=== PATIENT | female | born 1970 | race Caucasian/White ===

== ENCOUNTER → 2016-04-11 | Outpatient (CLI) | payer OTHER ==
[2016-04-12 01:15] LABS: Hemoglobin A1C 5.3 % (4.2-6.1)
== END | disposition home or self-care (01) ==
LOC: MMGSC 11:59
PROVIDERS: ATTEND Family Medicine
DX: R73.9 Hyperglycemia, unspecified (principal)
CPT/HCPCS: 36415; 83036

== ENCOUNTER → 2016-10-07 | Outpatient (CLI) | payer OTHER ==
[2016-10-07 19:06] LABS: ALT 32 U/L (9-52); AST 24 U/L (14-36); Alkaline Phosphatase 89 U/L (38-126); Anion Gap 8 mmol/L; Basophils # (A) 0.1 k/uL (0-0.2); Basophils % (A) 1 %; Blood Urea Nitrogen 17 mg/dL (7-17); CH 26.5; CHCM 31.6; Calcium 9.7 mg/dL (8.4-10.2); Carbon Dioxide 31 mmol/L (22-30); Chloride 100 mmol/L (98-107); Eosinophils # (A) 0.1 k/uL (0-0.7); Eosinophils % (A) 2 %; Glucose 95 mg/dL (74-99); HCT 41.4 % (34.0-46.0); HDW 2.51; HGB 12.9 gm/dL (11.4-16.0); Luc # (Auto) 0.18; Luc % (Auto) 2; Lymphocytes # (A) 2.4 k/uL (1.0-4.8); Lymphocytes % (A) 33 %; MCH 26.1 pg (25.0-35.0); MCHC 31.1 g/dL (31.0-37.0); MCV 84.1 fL (80.0-100.0); Mean Platelet Volume 10.3; Monocytes # (A) 0.3 k/uL (0-1.0); Monocytes % (A) 4 %; Neutrophils # (A) 4.2 k/uL (1.3-7.7); Neutrophils % (A) 59 %; Non-African American GFR(MDRD) >60 (>60 ml/min/1.73 sqM); Potassium 4.6 mmol/L (3.5-5.1); RBC 4.92 m/uL (3.80-5.40); RDW 15.2 % (11.5-15.5); Sodium 139 mmol/L (137-145); Total Bilirubin 0.6 mg/dL (0.2-1.3); Total Protein 7.2 g/dL (6.3-8.2); WBC 7.2 k/uL (3.8-10.6); WBC (Perox) 7.19
== END | disposition home or self-care (01) ==
LOC: MMGSC 11:28
PROVIDERS: ATTEND Family Medicine
DX: N93.8 Other specified abnormal uterine and vaginal bleeding (principal)
CPT/HCPCS: 36415; 80053; 84439; 84443; 85025

== ENCOUNTER → 2017-06-23 | Outpatient (CLI) | payer OTHER ==
--- NOTE | 2017-06-23 11:13 | XR ---
EXAMINATION TYPE: XR chest 2V DATE OF EXAM: 06/23/2017 COMPARISON: NONE TECHNIQUE: PA and lateral views submitted. HISTORY: Cough FINDINGS: The lungs are clear and there is no pneumothorax, pleural effusion, or focal pneumonia. IMPRESSION: 1. No acute process.
== END | disposition home or self-care (01) ==
LOC: RADXRMAIN 10:12
PROVIDERS: ATTEND Family Medicine
DX: R05 Cough (principal)
CPT/HCPCS: 71046

== ENCOUNTER → 2017-10-14 | Outpatient (CLI) | payer OTHER ==
--- NOTE | 2017-10-15 12:26 | MM ---
Reason for exam: screening (asymptomatic). Last mammogram was performed 1 year and 10 months ago. History: Took hormonal contraceptives for 5 years beginning at age 18. Physical Findings: A clinical breast exam by your physician is recommended on an annual basis and results should be correlated with mammographic findings. MG 3D Screening Mammo W/Cad Bilateral CC and MLO view(s) were taken. Prior study comparison: December 04, 2015, bilateral MG screening mammo w CAD. June 30, 2013, bilateral MG screening mammo w CAD. The breast tissue is heterogeneously dense. This may lower the sensitivity of mammography. No suspicious calcifications are seen. There is no discrete abnormality. No significant changes when compared with prior studies. ASSESSMENT: Benign, BI-RAD 2 RECOMMENDATION: Routine screening mammogram of both breasts in 1 year.
== END ==
LOC: RADMAMWWP 07:43
PROVIDERS: ATTEND Family Medicine
DX: Z12.31 Encounter for screening mammogram for malignant neoplasm of breast (principal)
CPT/HCPCS: 77063; 77067

== ENCOUNTER → 2018-08-04 | Outpatient (CLI) | payer BC | END | disposition home or self-care (01) | LOC: LABPAT 12:18 | PROVIDERS: ATTEND Surgery Plastic and Reconstructive Surgery | DX: Z01.812 Encounter for preprocedural laboratory examination (principal) | CPT/HCPCS: 36415; 86850; 86900; 86901 ==

== ENCOUNTER → 2018-08-04 | Outpatient (CLI) | payer BC ==
[2018-08-04 12:52] VITALS: BP 155/84; PULSE 76; TEMP 98.2; BMI 34.9
--- NOTE | 2018-08-04 22:09 | P.HPBAR ---
Bariatric H&P - History & Physicial H&P Date: 08/04/18 History & Physicial: Visit/CC: nurse visit only Patient initial contact: Initial weight: Initial weight in pounds: Height: 5 ft 6.5 in Initial BMI: Last weight: Current weight: 99.79 kg Current weight in pounds: 220.00 Current BMI: 34.9 [place] body weight (based on NIH guidelines): 60.101 kg Excess body weight loss: The patient is a 47 year-old F who presents for Bariatric Assessment. DATE OF SERVICE: 08/04/2018 REASON FOR CONSULTATION: Morbid obesity HISTORY OF PRESENT ILLNESS: Mary Rojas is a 47-year-old female who comes with morbid obesity who presents as a transfer from another bariatric center after completing all pre-surgical requirements for bariatric procedure. She was scheduled to undergo surgery when the bariatric program had dissolved. Now she presents as a transfer of care to complete her procedure as she has been pre- approved. She comes in with multiple medical co-morbidities related to her obesity including hypertensive heart disease, osteoarthritis of the hips and knees. She has also developed anxiety disorder, depressive disorder and hypothyroidism. She has undergone attempts at weight loss including calorie restriction with minimal success with immediate weight re-gain. She has completed over 7 months of medical supervised weight loss. Her highest previous weight was over 234 pounds. She has lost over 10+ pounds in the same time frame. She has a family history of morbid obesity with hypertensive heart disease. She comes in looking into the sleeve gastrectomy. At height of 5 feet 6.5 inches, her ideal body weight is 154 pounds. She comes in 221 pounds. Her body mass index is 35.2. PAST MEDICAL HISTORY: 1. Morbid obesity due to excess calories 2. Body mass index of 37.3, initial 3. Osteoarthritis of the knees. 4. Osteoarthritis of the lower back. 5. Hypertensive heart disease. 6. Gastroesophageal reflux disease 7. Iron deficiency anemia 8. Hypothyroidism 9. Anxiety disorder 10. Depressive disorder 11. Bronchitis PAST SURGICAL HISTORY: 1. Tubal ligation 2. Upper endoscopy HOME MEDICATIONS: Home Medications Medication Instructions Recorded Confirmed Chlorothiazide [Diuril] 250 mg PO DAILY 08/04/18 08/04/18 DULoxetine HCL [Cymbalta] 60 mg PO DAILY 08/04/18 08/04/18 Levothyroxine Sodium 150 mcg PO DAILY 08/04/18 08/04/18 ALLERGIES: Allergies Allergy/AdvReac Type Severity Reaction Status Date / Time amoxicillin Allergy Rash/Hives Verified 08/04/18 12:53 sulfamethoxazole Allergy Rash/Hives Verified 08/04/18 12:56 [From Bactrim] trimethoprim [From Bactrim] Allergy Rash/Hives Verified 08/04/18 12:56 SOCIAL HISTORY: No past tobacco use. FAMILY HISTORY: No family history of ulcerative colitis disease or Crohn's disease. Family history of morbid obesity. No lupus in the family. No reports of stomach or esophageal cancer. Family history of hypertensive heart disease REVIEW OF ORGAN SYSTEMS: CONSTITUTIONAL: At height of 5 feet 6.5 inches, her ideal body weight is 154 pounds. She comes in 221 pounds. Her body mass index is 35.2. HEENT: Denies any active troubles with hearing. No troubles with swallowing. She wears glasses. ENDOCRINE: No diabetes. Has hypothyroidism. CARDIOVASCULAR: Past reports of palpitations or heart attacks or chest pain. RESPIRATORY: Has daytime somnolence. No asthma. GASTROINTESTINAL: Denies any bright red blood per rectum. No diarrhea. No constipation. MUSCULOSKELETAL: Has lower back pain and joint pain. Has osteoarthritis of the knees. NEURO: No headaches. No seizure disorders. PSYCH: Has depression. No suicidal ideation. Has anxiety. RHEUMATOLOGIC: No lupus. No rheumatoid arthritis. HEMATOLOGIC: Denies any abnormal bleeding or bruising. No personal history of DVTs. SKIN: No rash. No skin cancer. PHYSICAL EXAM: VITAL SIGNS: Height 5 foot 6.5 inches, weight 221 pounds. BMI 35.2 Vital Signs Temp 98.2 F 08/04/18 12:03 Pulse 76 08/04/18 12:03 Resp BP 155/84 08/04/18 12:03 Pulse Ox GENERAL: Well-developed in no acute distress. HEENT: No scleral icterus. Extraocular movements grossly intact. Hears conversational speech. No nasal drainage. NECK: Supple without lymphadenopathy. CHEST: Nonlabored respirations with equal bilateral excursions. CARDIOVASCULAR: Regular rate and regular rhythm. Distal 2+ pulses. ABDOMEN: Obese, soft, nontender, nondistended. MUSCULOSKELETAL: No clubbing, cyanosis. Gross strength 5/5 distal lower extremities. NEURO: No focal or lateralizing signs. Cranial nerves 2 through 12 grossly within normal limits. PSYCH: Appropriate affect. Alert and oriented to person, place and time. SKIN: Good skin turgor. Well perfused. ASSESSMENT: 1. Morbid obesity due to excess calories 2. Body mass index of 37.3, initial 3. Osteoarthritis of the knees. 4. Osteoarthritis of the lower back. 5. Hypertensive heart disease. 6. Gastroesophageal reflux disease 7. Iron deficiency anemia 8. Hypothyroidism 9. Anxiety disorder 10. Depressive disorder 11. Bronchitis PLAN: 1. Bariatric options including sleeve, band and a Armando-en-Y gastric bypass were reviewed in detail. The patient elected for a sleeve gastrectomy. Robotic assisted approach described. 2. The [place] [facility] Data was also reviewed with benefits and risks as described. 3. An 8 page second-generation bariatric consent form was reviewed in detail including potential of bleeding, infection, leaks, adequate weight loss, nutritional deficiencies which the patient demonstrated understanding of the risks. 4. A 2 week high-protein low caloric 800 kcal diet described to address hepatomegaly. 5. Preoperative labs including complete metabolic panel and CBC with type and screen recommended. 6. DVT prophylaxis per [place] [facility]ariat[facility] surgery collaborative. 7. Antibiotic prophylaxis. 8. Inpatient hospitalization anticipated for more than 2 nights. 9. All questions and concerns were addressed with the patient. 10. Overall, she presents as a transfer from another bariatric center after completing all requirements including medical risk assessment, psychiatric assessment, and nutritional assessment. 11. Recommend iron infusion for symptomatic iron deficiency anemia despite oral supplements. Thank you for this consultation. Past Medical History Past Medical History: Hypertension History of Any Multi-Drug Resistant Organisms: None Reported Past Surgical History: Tubal Ligation Past Anesthesia/Blood Transfusion Reactions: No Reported Reaction Past Psychological History: Anxiety Smoking Status: Never smoker Past Alcohol Use History: None Reported Past Drug Use History: None Reported Surgical - Exam Vital Signs Temp Pulse BP 98.2 F 76 155/84 08/04/18 12:03 08/04/18 12:03 08/04/18 12:03 Bariatric Checklist Checklist: Plan: Checklist: EGD: 1. Hiatal hernia: 2. H. Pylori: HgbA1c: Vitamin D: Smoking: Never smoker Primary care physician referral: dr coello Psychiatry clearance: Cardiology clearance: Sleep study: Diet journal: VTE risk score: VTE risk level: Rehab needs at discharge:
== END | disposition home or self-care (01) ==
LOC: BARWHC3 11:39
PROVIDERS: ATTEND Surgery Plastic and Reconstructive Surgery
DX: E66.01 Morbid (severe) obesity due to excess calories (principal); I11.9 Hypertensive heart disease without heart failure; M17.0 Bilateral primary osteoarthritis of knee; M16.0 Bilateral primary osteoarthritis of hip; F41.9 Anxiety disorder, unspecified; F32.9 Major depressive disorder, single episode, unspecified; E03.9 Hypothyroidism, unspecified; M47.9 Spondylosis, unspecified; K21.9 Gastro-esophageal reflux disease without esophagitis; D50.9 Iron deficiency anemia, unspecified; J40 Bronchitis, not specified as acute or chronic; Z79.890 Hormone replacement therapy; Z79.899 Other long term (current) drug therapy; Z83.438 Family history of other disorder of lipoprotein metabolism and other lipidemia; Z88.0 Allergy status to penicillin; Z68.37 Body mass index [BMI] 37.0-37.9, adult; Z88.2 Allergy status to sulfonamides
CPT/HCPCS: 99211

== ENCOUNTER 2018-08-12 10:25 | Inpatient (IN) | payer BC ==
--- NOTE | 2018-08-12 08:22 | P.GSHP ---
History of Present Illness H&P Date: 08/12/18 DATE OF SERVICE: 08/12/2018 CHIEF COMPLAINT: Morbid obesity HISTORY OF PRESENT ILLNESS: Mary Rojas is a 47-year-old female who comes with morbid obesity. She comes in with multiple medical co-morbidities related to her obesity including hypertensive heart disease, osteoarthritis of the hips and knees. She has also developed anxiety disorder, depressive disorder and hypothyroidism. She has undergone attempts at weight loss including calorie restriction with minimal success with immediate weight re-gain. She has completed over 7 months of medical supervised weight loss. Her highest previous weight was over 234 pounds. She has lost over 10+ pounds in the same time frame. She has a family history of morbid obesity with hypertensive heart disease. She comes in looking into the sleeve gastrectomy. At height of 5 feet 6 inches, her ideal body weight is 154 pounds. She comes in 224 pounds. Her body mass index is 36.3. PAST MEDICAL HISTORY: 1. Morbid obesity due to excess calories 2. Body mass index of 37.3, initial 3. Osteoarthritis of the knees. 4. Osteoarthritis of the lower back. 5. Hypertensive heart disease. 6. Gastroesophageal reflux disease 7. Iron deficiency anemia 8. Hypothyroidism 9. Anxiety disorder 10. Depressive disorder 11. Bronchitis PAST SURGICAL HISTORY: 1. Tubal ligation 2. Upper endoscopy HOME MEDICATIONS: Home Medications Medication Instructions Recorded Confirmed Chlorothiazide [Diuril] 250 mg PO DAILY 08/04/18 08/04/18 DULoxetine HCL [Cymbalta] 60 mg PO DAILY 08/04/18 08/04/18 Levothyroxine Sodium 150 mcg PO DAILY 08/04/18 08/04/18 ALLERGIES: Allergies Allergy/AdvReac Type Severity Reaction Status Date / Time amoxicillin Allergy Rash/Hives Verified 08/04/18 12:53 sulfamethoxazole Allergy Rash/Hives Verified 08/04/18 12:56 [From Bactrim] trimethoprim [From Bactrim] Allergy Rash/Hives Verified 08/04/18 12:56 SOCIAL HISTORY: No past tobacco use. FAMILY HISTORY: No family history of ulcerative colitis disease or Crohn's disease. Family history of morbid obesity. No lupus in the family. No reports of stomach or esophageal cancer. Family history of hypertensive heart disease REVIEW OF ORGAN SYSTEMS: CONSTITUTIONAL: At height of 5 feet 6.5 inches, her ideal body weight is 154 p ounds. HEENT: Denies any active troubles with hearing. No troubles with swallowing. She wears glasses. ENDOCRINE: No diabetes. Has hypothyroidism. CARDIOVASCULAR: Past reports of palpitations or heart attacks or chest pain. RESPIRATORY: Has daytime somnolence. No asthma. GASTROINTESTINAL: Denies any bright red blood per rectum. No diarrhea. No constipation. MUSCULOSKELETAL: Has lower back pain and joint pain. Has osteoarthritis of the knees. NEURO: No headaches. No seizure disorders. PSYCH: Has depression. No suicidal ideation. Has anxiety. RHEUMATOLOGIC: No lupus. No rheumatoid arthritis. HEMATOLOGIC: Denies any abnormal bleeding or bruising. No personal history of DVTs. SKIN: No rash. No skin cancer. PHYSICAL EXAM: VITAL SIGNS: Height 5 foot 6 inches, weight 225 pounds. BMI 36.3 GENERAL: Well-developed in no acute distress. HEENT: No scleral icterus. Extraocular movements grossly intact. Hears conversational speech. No nasal drainage. NECK: Supple without lymphadenopathy. CHEST: Nonlabored respirations with equal bilateral excursions. CARDIOVASCULAR: Regular rate and regular rhythm. Distal 2+ pulses. ABDOMEN: Obese, soft, nontender, nondistended. MUSCULOSKELETAL: No clubbing, cyanosis. Gross strength 5/5 distal lower extremities. NEURO: No focal or lateralizing signs. Cranial nerves 2 through 12 grossly within normal limits. PSYCH: Appropriate affect. Alert and oriented to person, place and time. SKIN: Good skin turgor. Well perfused. ASSESSMENT: 1. Morbid obesity due to excess calories 2. Body mass index of 37.3, initial 3. Osteoarthritis of the knees. 4. Osteoarthritis of the lower back. 5. Hypertensive heart disease. 6. Gastroesophageal reflux disease 7. Iron deficiency anemia 8. Hypothyroidism 9. Anxiety disorder 10. Depressive disorder 11. Bronchitis PLAN: 1. Bariatric options including sleeve, band and a Armando-en-Y gastric bypass were reviewed in detail. The patient elected for a sleeve gastrectomy. Robotic assisted approach described. 2. The [place] [facility] Data was also reviewed with benefits and risks as described. 3. An 8 page second-generation bariatric consent form was reviewed in detail including potential of bleeding, infection, leaks, adequate weight loss, nutritional deficiencies which the patient demonstrated understanding of the risks. 4. A 2 week high-protein low caloric 800 kcal diet described to address hepatomegaly. 5. Preoperative labs including complete metabolic panel and CBC with type and screen recommended. 6. DVT prophylaxis per [place] [facility]ariat[facility] surgery collaborative. 7. Antibiotic prophylaxis. 8. Inpatient hospitalization anticipated for more than 2 nights. 9. All questions and concerns were addressed with the patient. Thank you for this consultation. Past Medical History Past Medical History: GERD/Reflux, Hypertension, Thyroid Disorder Additional Past Medical History / Comment(s): HIATAL HERNIA, STATES CURRENT LOW IRON AND RECEIVING IRON TRANSFUSION . History of Any Multi-Drug Resistant Organisms: None Reported Past Surgical History: Tubal Ligation Additional Past Surgical History / Comment(s): EGD Past Anesthesia/Blood Transfusion Reactions: No Reported Reaction Past Psychological History: Anxiety Smoking Status: Never smoker Past Alcohol Use History: Occasional Past Drug Use History: None Reported - Past Family History Father Family Medical History: Cancer Additional Family Medical History / Comment(s): PROSTATE CANCER Medications and Allergies Home Medications Medication Instructions Recorded Confirmed Type DULoxetine HCL [Cymbalta] 60 mg PO DAILY 08/04/18 08/10/18 History Levothyroxine Sodium 150 mcg PO DAILY 08/04/18 08/10/18 History Chlorthalidone [Hygroton] 25 mg PO DAILY 08/06/18 08/10/18 History Omeprazole [PriLOSEC] 20 mg PO DAILY 08/06/18 08/10/18 History Allergies Allergy/AdvReac Type Severity Reaction Status Date / Time amoxicillin Allergy Rash/Hives Verified 08/10/18 14:31 sulfamethoxazole Allergy Rash/Hives Verified 08/10/18 14:31 [From Bactrim] trimethoprim [From Bactrim] Allergy Rash/Hives Verified 08/10/18 14:31
[~2018-08-12 10:25] MED LIST: CHLORHEXIDINE GLUCONATE 15 ML CUP MUCOUS MEM ONE; DEXAMETHASONE SOD PHOSPHATE 10 MG/ML 1 ML VIAL IV ONE; ENOXAPARIN 40 MG/0.4 ML SYRINGE SQ ONE; ENOXAPARIN 40 MG/0.4 ML SYRINGE SQ STA; LIDOCAINE 1% 20 ML VIAL (10MG/ML) FOR IV START INTRADERMA PRN; PANTOPRAZOLE 40 MG/10 ML VIAL IV STA; SCOPOLAMINE 1.5MG/72HR PATCH TRANSDERM ONE; ceFAZolin IN SWFI 2 GM/20 ML SYRINGE IVP ONE
[2018-08-12] MEDS: LACTATED RINGERS 1,000 ML IV SCH (10:53)
[2018-08-12] MEDS: ONDANSETRON 4 MG/2 ML VIAL IVP ONE ×2 (10:54→11:30)
[2018-08-12] MEDS ORDERED: SUCCINYLCHOLINE CHLORIDE 100 MG/5 ML SYR IV ONE (11:43)
[2018-08-12] MEDS ORDERED: NEOSTIGMINE 1 MG/ML 10 ML VIAL ONE (11:43)
[2018-08-12] MEDS ORDERED: ROCURONIUM BROMIDE 10 MG/ML 10 ML VIAL IV ONE (11:43)
[2018-08-12] MEDS ORDERED: GLYCOPYRROLATE 0.2 MG/ML 2 ML VIAL ONE (11:43)
[2018-08-12] MEDS ORDERED: PROPOFOL 10 MG/ML 20 ML VIAL IV ONE (11:43)
[2018-08-12] MEDS ORDERED: fentaNYL (PF) 50 MCG/ML 2 ML AMP ONE (11:43)
[2018-08-12] MEDS ORDERED: LIDOCAINE 1% INJ 10MG/ML (20 ML MDV) ONE (11:43)
[2018-08-12] MEDS ORDERED: HYDROmorphone (PF) 1 MG/ML ONE (11:43)
[2018-08-12] MEDS ORDERED: MIDAZOLAM 2 MG/2 ML VIAL ONE (11:43)
[2018-08-12] MEDS ORDERED: KETAMINE 10 MG/ML 20 ML VIAL ONE (11:43)
[2018-08-12 11:44] LABS: Anisocytosis Slight; Basophils % (A) 0 %; Eosinophils # (A) 0.1 k/uL (0-0.7); Eosinophils % (A) 1 %; HCT 39.7 % (34.0-46.0); HGB 12.7 gm/dL (11.4-16.0); Lymphocytes # (A) 2.1 k/uL (1.0-4.8); Lymphocytes % (A) 22 %; MCH 23.8 pg (25.0-35.0); MCHC 31.9 g/dL (31.0-37.0); MCV 74.5 fL (80.0-100.0); Mean Platelet Volume 8.9; Microcytosis Slight; Monocytes # (A) 0.3 k/uL (0-1.0); Monocytes % (A) 4 %; Neutrophils # (A) 6.8 k/uL (1.3-7.7); Neutrophils % (A) 71 %; Platelet Count 274 k/uL (150-450); RBC 5.32 m/uL (3.80-5.40); RDW 16.2 % (11.5-15.5); WBC 9.6 k/uL (3.8-10.6)
[2018-08-12 11:50] LABS: ALT 23 U/L (9-52); AST 32 U/L (14-36); African American GFR (CKD) >90 (>60 ml/min/1.73 sqM); Albumin 4.5 g/dL (3.5-5.0); Alkaline Phosphatase 85 U/L (38-126); Anion Gap 10 mmol/L; Blood Urea Nitrogen 15 mg/dL (7-17); Calcium 9.9 mg/dL (8.4-10.2); Carbon Dioxide 27 mmol/L (22-30); Chloride 102 mmol/L (98-107); Glucose 112 mg/dL (74-99); Potassium 3.6 mmol/L (3.5-5.1); Sodium 139 mmol/L (137-145); Total Bilirubin 1.3 mg/dL (0.2-1.3); Total Protein 7.9 g/dL (6.3-8.2)
[2018-08-12] MEDS ORDERED: BUPIVACAINE (PF) 0.5% 30 ML VIAL SQ ONE ×2 (11:55→12:39)
[2018-08-12] MEDS ORDERED: LACTATED RINGERS 1,000 ML IV ONE (13:32)
[2018-08-12] MEDS ORDERED: NALOXONE 0.4 MG/ML 1 ML VIAL IV PRN (13:51)
[2018-08-12] MEDS ORDERED: HYDROcodone/APAP 15 ML SOLUTION PO PRN (13:51)
[2018-08-12] MEDS ORDERED: diphenhydrAMINE 50 MG/ML 1 ML VIAL IVP PRN (13:51)
--- NOTE | 2018-08-12 13:58 | P.OP ---
Date of Procedure: 08/12/18 Description of Procedure: SURGEON: NI GONZALEZ MD PREOPERATIVE DIAGNOSES: 1. Morbid obesity due to excess calories 2. Body mass index of 37.3, initial 3. Osteoarthritis of the knees. 4. Osteoarthritis of the lower back. 5. Hypertensive heart disease. 6. Gastroesophageal reflux disease 7. Iron deficiency anemia 8. Hypothyroidism 9. Anxiety disorder 10. Depressive disorder 11. Bronchitis POSTOPERATIVE DIAGNOSES: 1. Morbid obesity due to excess calories 2. Body mass index of 37.3, initial 3. Osteoarthritis of the knees. 4. Osteoarthritis of the lower back. 5. Hypertensive heart disease. 6. Gastroesophageal reflux disease 7. Iron deficiency anemia 8. Hypothyroidism 9. Anxiety disorder 10. Depressive disorder 11. Bronchitis OPERATION: 1. Robotic assisted daVinci Xi laparoscopic sleeve gastrectomy with 40-Surinamese bougie, multiport. 2. Intraoperative esophagogastroduodenoscopy. ANESTHESIA: Gen. local anesthetic ESTIMATED BLOOD LOSS: 10 mL SPECIMENS REMOVED: Sleeve gastrectomy COMPLICATIONS: None. INDICATIONS: Mary Rojas is a 47-year-old female who comes with morbid obesity. She comes in with multiple medical co-morbidities related to her obesity including hypertensive heart disease, osteoarthritis of the hips and knees. She has also developed anxiety disorder, depressive disorder and hypothyroidism. She has undergone attempts at weight loss including calorie restriction with minimal success with immediate weight re-gain. She has completed over 7 months of medical supervised weight loss. Her highest previous weight was over 234 pounds. She has lost over 10+ pounds in the same time frame. She has a family history of morbid obesity with hypertensive heart disease. She comes in looking into the sleeve gastrectomy. At height of 5 feet 6 inches, her ideal body weight is 154 pounds. She comes in 217 pounds. Her body mass index is 35.1. All surgical options for morbid obesity had been described using the [place] [facility]ariat[facility] collaborative comorbidity resolution including complication risk score. A second-generation bariatric consent form was described in detail including the possibility of protein malnutrition, leaks, gastric stricture, venous thrombosis, gastroesophageal reflux disease, need for further surgery for which she demonstrated understanding. Benefits and risks of the procedure were described at length. Informed consent was obtained. DESCRIPTION: The patient was brought into the operating room theater. Preoperatively she had received Lovenox subcutaneously for DVT prophylaxis. Additionally she had Peridex oral solution as an oral decontaminant. After general induction, the abdomen was prepped and draped in standard sterile fashion. An Ioban draping was placed along the abdomen. No douglass catheter was placed. A robotic da Edmundo Xi system was prepped and primed. The xiphoid to umbilicus measured 16 cm. At 15 cm from the xiphoid, proposed port sites were marked with indelible marker along the anterior axillary line bilaterally, mid axillary line bilaterally with each ports were marked 10 to 15 cm from each other. The assistant clinical nurse manager port was marked along the left lateral abdominal wall. The robotic stapler port was marked for the right midclavicular line. A 5 mm 0 degrees laparoscopic trocar entry was performed along the left upper quadrant. The abdomen was insufflated to 15 mmHg pressure he tolerated well. Diagnostic laparoscopy demonstrated no injury to bowel, viscera, or mesentery. The liver surface was remarkable for mild hepatomegaly. No injury had occurred to the small bowel or viscera. Along the hiatus no evidence of large prominent hiatal hernia. A 8 mm port was placed along the right upper abdominal wall after exchanging the 5 mm port. A separate 8 mm port was placed along the left lateral abdominal wall. Please note that the ports were placed at least 20 cm away from the target anatomy. Care was taken to check each robotic arms were safely away from collision with the bed or the patient. At the epigastrium, a median sized Tania liver retractor was placed under direct visualization with the Iron Milk Vendor placed under the right shoulder of the patient. Next, 12-mm robot stapler port was placed along the right upper quadrant. The camera 8-mm port was maintained along the epigastrium, The patient was repositioned in reverse Trendelenburg position at 22-degrees after lowering the bed. The robot was docked along the left side of the patient. Using a grasper for arm 4, a veseel sealer for arm 3, including grasper for arm 1, the robotic system was docked and primed as described. Instruments were interchanged by the assistant clinical nurse manager for stapler loads. The camera was placed at 30-degrees down. I had sat at the console. The pylorus was identified and 6 cm proximally along the greater curvature of the stomach, the short gastrics were mobilized upwards to the angle of His using a vessel sealer. Hemostasis was excellent during this portion of the procedure. Next, the upper pole of the stomach was adherent to the left marsha, which was gently dissected free using atraumatic grasper. The nursing academic dean placed a 40-Surinamese blunted bougie into the stomach. Robotic stapler green loads 60 mm x 2, followed by blue 60 mm x 4 loads were used to create the sleeve. Initial firing was across the antrum of the stomach towards the angle of His. The staple line was completely hemostatic and linear without corkscrewing. Hemostasis was excellent. The space from the angularis incisura of the sleeve was approximately 4 cm. I then went to the head of the bed to perform the intraoperative esophagogastroduodenoscopy leak test. The upper pole of the stomach was bathed using normal saline solution. The scope was withdrawn with careful inspection along the staple line for which no leaks were found along the entire length. Additionally,the sleeve was completely hemostatic without any encroachment along the angularis incisura. Its topology was a soft "J". No stricture was encountered upon placement of the scope. The GI tract was desufflated. The patient tolerated this portion of the procedure well. The scope was completely withdrawn. The robot was undocked. I then rescrubbed into case, whereby the irrigation fluid was aspirated from the abdominal cavity. Tisseel fibrin sealant was placed along the entire staple length. Once dried the Tania liver retractor was removed. Attention was now brought to removal of the specimen. The distal end of the sleeve gastrectomy specimen was brought out through the 12 mm port at the left upper quadrant. The specimen was gently removed en total. No contamination had occurred during this process. All instruments and pneumoperitoneum including irrigation fluid was removed from the abdominal cavity. The 12 mm port site was closed using 0-Vicryl and Rober Gonzalez and irrigated with diluted hydrogen peroxide. The final incisions were closed using subcuticular interrupted suture of 4-0 Monocryl. Dermabond was applied to the skin once the skin had been cleansed. OptiFoam dressing was placed along the stomach extraction site. At the end of the procedure, needle, sponge, and instrument count was verified correct by the surgical forceps fabricator. The patient was taken to the postanesthesia care unit in stable condition. She had tolerated the procedure well. Intraoperative films and findings were reviewed with the patient's family. FINDINGS: 1. Negative intraoperative esophagogastrojejunoscopy leak test. 2. No epatomegaly or large hiatus hernia. 3. Total of 6 staplers used including 2 - 60 mm green robot mykel and 4 - 60 mm blue robot loads used to create the gastric sleeve. 4. Xiphoid to umbilicus of 16 cm. 5. Trocars placed 15 cm from xiphoid process 6. Sleeve gastrectomy 20 x 4 cm 7. Console time 26 minutes
[2018-08-12] MEDS: HYDROmorphone 0.5 MG/0.5 ML SYRINGE IVP PRN ×2 (14:39→14:53)
[2018-08-12] MEDS: SIMETHICONE 40 MG/0.6 ML DROPS 2,000 MG/30 ML BOTTLE PO SCH ×3 (15:23→23:20)
[2018-08-12] MEDS: HYOSCYAMINE ORAL DROPS 1.875 MG/15 ML BOTTLE PO SCH ×3 (15:24→23:19)
[2018-08-12] MEDS: ALBUTEROL NEBULIZED 2.5 MG/3 ML INHALATION SCH ×2 (16:05→19:47)
[2018-08-12] MEDS ORDERED: ONDANSETRON 4 MG/2 ML VIAL IVP ONE (16:29)
[2018-08-12] MEDS ORDERED: DEXAMETHASONE SOD PHOSPHATE 10 MG/ML 1 ML VIAL IV ONE (16:34)
[2018-08-12] MEDS: ONDANSETRON 4 MG/2 ML VIAL IVP SCH ×2 (17:09→23:19)
[2018-08-12] MEDS: HYDROmorphone 1 MG/ML 1 ML SYRINGE IVP PRN ×2 (17:17→21:37)
[2018-08-12 19:17] LABS: Glucose,Whole Blood 210 mg/dL (75-99)
[2018-08-12] MEDS ORDERED: SCOPOLAMINE 1.5MG/72HR PATCH TRANSDERM SCH (19:30)
[2018-08-12] MEDS: 0.9% NACL WITH KCL 20 MEQ/L 1,000 ML IV SCH (19:34)
[2018-08-12 19:48] VITALS: BMI 35.1
[2018-08-12] MEDS: ceFAZolin IN SWFI 2 GM/20 ML SYRINGE IVP SCH (20:12)
[2018-08-13] MEDS ORDERED: SODIUM CHLORIDE 0.9% 2,000 ML IV ONE (02:40)
[2018-08-13] MEDS: MAGNESIUM SULFATE-D5W PMX 1 GM in DEXTROSE/WATER 1 100ML.BAG IVPB SCH ×4 (03:05→08:51)
[2018-08-13] MEDS: 0.9% NACL WITH KCL 20 MEQ/L 1,000 ML IV SCH ×3 (04:44→19:23)
[2018-08-13] MEDS: ceFAZolin IN SWFI 2 GM/20 ML SYRINGE IVP SCH (04:44)
[2018-08-13] MEDS: ONDANSETRON 4 MG/2 ML VIAL IVP SCH ×4 (04:45→22:43)
[2018-08-13] MEDS: HYOSCYAMINE ORAL DROPS 1.875 MG/15 ML BOTTLE PO SCH (04:45)
[2018-08-13] MEDS: SIMETHICONE 40 MG/0.6 ML DROPS 2,000 MG/30 ML BOTTLE PO SCH ×3 (04:46→22:37)
[2018-08-13] MEDS: LACTATED RINGERS 1,000 ML IV SCH (04:55)
[2018-08-13] MEDS: ALBUTEROL NEBULIZED 2.5 MG/3 ML INHALATION SCH ×4 (08:12→20:04)
[2018-08-13 08:21] LABS: Anisocytosis Slight; Basophils % (A) 0 %; Eosinophils % (A) 0 %; HCT 30.4 % (34.0-46.0); Lymphocytes # (A) 1.1 k/uL (1.0-4.8); Lymphocytes % (A) 6 %; MCH 24.4 pg (25.0-35.0); MCHC 31.9 g/dL (31.0-37.0); MCV 76.6 fL (80.0-100.0); Mean Platelet Volume 8.8; Microcytosis Slight; Monocytes # (A) 0.7 k/uL (0-1.0); Monocytes % (A) 4 %; Neutrophils # (A) 16.7 k/uL (1.3-7.7); Neutrophils % (A) 90 %; Platelet Count 314 k/uL (150-450); RBC 3.97 m/uL (3.80-5.40); RDW 17.4 % (11.5-15.5); WBC 18.5 k/uL (3.8-10.6)
[2018-08-13 08:30] LABS: Glucose,Whole Blood 196 mg/dL (75-99)
[2018-08-13 08:41] LABS: HGB 9.7 gm/dL (11.4-16.0)
[2018-08-13 08:42] LABS: African American GFR (CKD) >90 (>60 ml/min/1.73 sqM); Anion Gap 10 mmol/L; Blood Urea Nitrogen 18 mg/dL (7-17); Calcium 8.8 mg/dL (8.4-10.2); Carbon Dioxide 25 mmol/L (22-30); Chloride 102 mmol/L (98-107); Sodium 137 mmol/L (137-145)
[2018-08-13] MEDS: ENOXAPARIN 40 MG/0.4 ML SYRINGE SQ SCH (08:51)
[2018-08-13 08:52] LABS: Potassium 4.1 mmol/L (3.5-5.1)
[2018-08-13] MEDS: PANTOPRAZOLE 40 MG/10 ML VIAL IV SCH (08:52)
[2018-08-13 08:53] LABS: Magnesium 2.8 mg/dL (1.6-2.3)
[2018-08-13] MEDS: HYDROmorphone 1 MG/ML 1 ML SYRINGE IVP PRN ×2 (09:13→15:28)
[2018-08-13] MEDS: CHLORTHALIDONE 25 MG TAB PO SCH (12:11)
--- NOTE | 2018-08-13 14:16 | P.PN ---
<JamesNeeta Olaf - Last Filed: 08/13/18 14:09> Subjective Progress Note Date: 08/13/18 CHIEF COMPLAINT: Status post sleeve HISTORY OF PRESENT ILLNESS: 47-year-old female who is status post sleeve gastrectomy. POD #1. Patient examined this morning at the bedside. Patient reports her pain is uncontrolled this morning. She refused pain medication all night because she was afraid her nausea would get worse. She reports nausea this morning but denies emesis. She was unable to complete esophagram today secondary to pain. She has been tolerating small amounts of clear liquids. Using incentive spirometer and able to pull 1500 mL. Patient voiding without difficulty and voided 500 mL this morning per bedpan. PHYSICAL EXAM: VITAL SIGNS: Reviewed. GENERAL: Well-developed in no acute distress. HEENT: No sclera icterus. Extraocular movements grossly intact. Moist buccal mucosa. Head is atraumatic, normocephalic. ABDOMEN: Soft. Nondistended. Surgical tenderness. Surgical sites clean dry and intact without drainage or signs of infection. NEUROLOGIC: Alert and oriented. Cranial nerves II through XII grossly intact. ASSESSMENT: 1. Morbid obesity due to excess calories 2. Body mass index of 37.3, initial 3. Osteoarthritis of the knees. 4. Osteoarthritis of the lower back. 5. Hypertensive heart disease. 6. Gastroesophageal reflux disease 7. Iron deficiency anemia 8. Hypothyroidism 9. Anxiety disorder 10. Depressive disorder 11. Bronchitis 12. Leukocytosis PLAN: 1. Continue clear liquid diet as tolerated 2. Pain control 3. Activity as tolerated 4. Incentive spirometry 5. Reschedule esophagram for tomorrow morning Nurse practitioner note has been reviewed by physician. Signing provider agrees with the documented findings, assessment, and plan of care. Objective - Vital Signs Vital signs: Vital Signs Temp 98.6 F 08/13/18 08:30 Pulse 78 08/13/18 11:31 Resp 18 08/13/18 07:05 BP 188/79 08/13/18 07:05 Pulse Ox 97 08/13/18 11:31 Intake & Output 08/12/18 08/13/18 08/13/18 18:59 06:59 18:59 Intake Total 1600 1610 Output Total 210 750 Balance 1390 860 Weight 98.7 kg Intake: IV 1600 Intake, IV Titration 1520 Amount 0.9% NaCl with KCl 20 Meq 1320 /l 1,000 ml @ 100 mls/hr IV .Q10H KEILA Rx#: [id number] Magnesium Sulfate-D5w Pmx 200 1 gm In Dextrose/Water 1 100ml.bag @ 100 mls/hr IVPB Q1H KEILA Rx#: [id number] Oral 90 Output: Urine 200 750 Estimated Blood Loss 10 Other: Voiding Method Toilet Bedpan - Labs CBC & Chem 7: 08/13/18 07:59 08/13/18 07:59 Labs: Abnormal Lab Results - Last 24 Hours (Table) 08/12/18 08/13/18 08/13/18 Range/Units 19:05 07:59 07:59 WBC 18.5 H (3.8-10.6) k/uL Hgb 9.7 L D (11.4-16.0) gm/dL Hct 30.4 L (34.0-46.0) % MCV 76.6 L (80.0-100.0) fL MCH 24.4 L (25.0-35.0) pg RDW 17.4 H (11.5-15.5) % Neutrophils # 16.7 H (1.3-7.7) k/uL BUN 18 H (7-17) mg/dL POC Glucose (mg/dL) 210 H (75-99) mg/dL Magnesium 2.8 H (1.6-2.3) mg/dL 08/13/18 Range/Units 08:29 WBC (3.8-10.6) k/uL Hgb (11.4-16.0) gm/dL Hct (34.0-46.0) % MCV (80.0-100.0) fL MCH (25.0-35.0) pg RDW (11.5-15.5) % Neutrophils # (1.3-7.7) k/uL BUN (7-17) mg/dL POC Glucose (mg/dL) 196 H (75-99) mg/dL Magnesium (1.6-2.3) mg/dL Assessment and Plan (1) Morbid obesity Current Visit: Yes Status: Acute Code(s): E66.01 - MORBID (SEVERE) OBESITY DUE TO EXCESS CALORIES SNOMED Code(s): 499187599 (2) S/P laparoscopic sleeve gastrectomy Current Visit: Yes Status: Acute Code(s): Z98.84 - BARIATRIC SURGERY STATUS SNOMED Code(s): 294288883 (3) Osteoarthritis Current Visit: Yes Status: Acute Code(s): M19.90 - UNSPECIFIED OSTEOARTHRITIS, UNSPECIFIED SITE SNOMED Code(s): 194734217 (4) GERD (gastroesophageal reflux disease) Current Visit: Yes Status: Acute Code(s): K21.9 - GASTRO-ESOPHAGEAL REFLUX DISEASE WITHOUT ESOPHAGITIS SNOMED Code(s): 496833647 (5) Hypertensive heart disease Current Visit: Yes Status: Acute Code(s): I11.9 - HYPERTENSIVE HEART DISEASE WITHOUT HEART FAILURE SNOMED Code(s): 64148098 (6) Iron deficiency anemia Current Visit: Yes Status: Acute Code(s): D50.9 - IRON DEFICIENCY ANEMIA, UNSPECIFIED SNOMED Code(s): 48057344 <Alla Valencia - Last Filed: 08/13/18 20:26> Subjective Patient reevaluated this evening. "I can walk without dizziness.". No further blackout spells. She is tolerating liquids. We'll adjust pain medication to Tylenol only. Esophagram for tomorrow. Likely discharge tomorrow. Objective - Vital Signs Vital signs: Vital Signs Temp 98.3 F 08/13/18 20:17 Pulse 88 08/13/18 20:17 Resp 18 08/13/18 20:17 BP 157/76 08/13/18 20:17 Pulse Ox 97 08/13/18 20:17 Intake & Output 08/13/18 08/13/18 08/14/18 06:59 18:59 06:59 Intake Total 1610 400 Output Total 750 600 Balance 860 -200 Weight 98.7 kg Intake: Intake, IV Titration 1520 Amount 0.9% NaCl with KCl 20 Meq 1320 /l 1,000 ml @ 100 mls/hr IV .Q10H KEILA Rx#: [id number] Magnesium Sulfate-D5w Pmx 200 1 gm In Dextrose/Water 1 100ml.bag @ 100 mls/hr IVPB Q1H KEILA Rx#: [id number] Oral 90 400 Output: Urine 750 600 Other: Voiding Method Toilet Toilet Bedpan Bedpan - Labs CBC & Chem 7: 08/13/18 07:59 08/13/18 07:59 Labs: Abnormal Lab Results - Last 24 Hours (Table) 08/13/18 08/13/18 08/13/18 Range/Units 07:59 07:59 08:29 WBC 18.5 H (3.8-10.6) k/uL Hgb 9.7 L D (11.4-16.0) gm/dL Hct 30.4 L (34.0-46.0) % MCV 76.6 L (80.0-100.0) fL MCH 24.4 L (25.0-35.0) pg RDW 17.4 H (11.5-15.5) % Neutrophils # 16.7 H (1.3-7.7) k/uL BUN 18 H (7-17) mg/dL POC Glucose (mg/dL) 196 H (75-99) mg/dL Magnesium 2.8 H (1.6-2.3) mg/dL
[2018-08-13] MEDS: ACETAMINOPHEN ORAL SUSP 160 MG/5 ML CUP PO PRN (22:37)
[2018-08-14] MEDS: SIMETHICONE 40 MG/0.6 ML DROPS 2,000 MG/30 ML BOTTLE PO SCH ×3 (04:41→11:02)
[2018-08-14] MEDS: 0.9% NACL WITH KCL 20 MEQ/L 1,000 ML IV SCH ×2 (04:42→05:47)
[2018-08-14] MEDS: ONDANSETRON 4 MG/2 ML VIAL IVP SCH ×2 (05:47→11:02)
[2018-08-14] MEDS: ACETAMINOPHEN ORAL SUSP 160 MG/5 ML CUP PO PRN (05:47)
[2018-08-14] MEDS: LACTATED RINGERS 1,000 ML IV SCH (06:59)
[2018-08-14] MEDS: ALBUTEROL NEBULIZED 2.5 MG/3 ML INHALATION SCH ×3 (07:47→16:20)
[2018-08-14] MEDS ORDERED: BISACODYL 5 MG TABLET.DR PO PRN (08:00)
[2018-08-14] MEDS: CHLORTHALIDONE 25 MG TAB PO SCH (08:40)
[2018-08-14] MEDS: PANTOPRAZOLE 40 MG/10 ML VIAL IV SCH (08:40)
[2018-08-14] MEDS: ENOXAPARIN 40 MG/0.4 ML SYRINGE SQ SCH (08:40)
[2018-08-14 09:02] LABS: Anisocytosis Slight; Basophils % (A) 0 %; Eosinophils % (A) 0 %; HCT 25.8 % (34.0-46.0); Hypochromasia Moderate; Lymphocytes # (A) 2.1 k/uL (1.0-4.8); Lymphocytes % (A) 13 %; MCH 24.5 pg (25.0-35.0); MCHC 31.3 g/dL (31.0-37.0); MCV 78.2 fL (80.0-100.0); Mean Platelet Volume 9.4; Microcytosis Slight; Monocytes # (A) 0.8 k/uL (0-1.0); Monocytes % (A) 4 %; Neutrophils # (A) 14.1 k/uL (1.3-7.7); Neutrophils % (A) 82 %; Platelet Count 237 k/uL (150-450); RDW 18.7 % (11.5-15.5); WBC 17.2 k/uL (3.8-10.6)
[2018-08-14 09:05] LABS: HGB 8.1 gm/dL (11.4-16.0)
[2018-08-14 09:14] LABS: African American GFR (CKD) >90 (>60 ml/min/1.73 sqM); Anion Gap 7 mmol/L; Blood Urea Nitrogen 12 mg/dL (7-17); Calcium 8.5 mg/dL (8.4-10.2); Carbon Dioxide 27 mmol/L (22-30); Chloride 104 mmol/L (98-107); Glucose 128 mg/dL (74-99); Magnesium 2.2 mg/dL (1.6-2.3); Potassium 3.4 mmol/L (3.5-5.1); Sodium 138 mmol/L (137-145)
--- NOTE | 2018-08-14 10:09 | FL ---
SINGLE CONTRAST UPPER GI EXAMINATION: CLINICAL HISTORY: 47-year-old female postoperative gastric sleeve assessment. TECHNIQUE: Single contrast exam performed with 25 ml Omnipaque 350 contrast. Total fluoroscopy time: 20 seconds. Total images: 19. FINDINGS: The patient swallowed oral contrast without difficulty or delay. Esophageal peristalsis and motility are within normal limits. There is good flow of contrast from the esophagus into the stomach with po stoperative changes of sleeve gastrectomy demonstrated. There is prompt passage into the duodenum. No free intraperitoneal air is seen. IMPRESSION: No evidence of leak or obstruction status post sleeve gastrectomy.
[2018-08-14] MEDS ORDERED: Potassium Replacement Protocol 1 EACH MISC MISCELLANE PRN (11:27)
--- NOTE | 2018-08-14 11:36 | P.PN ---
Subjective Progress Note Date: 08/14/18 CHIEF COMPLAINT: Status post sleeve HISTORY OF PRESENT ILLNESS: 47-year-old female who is status post sleeve gastrectomy. POD #2. Patient examined this morning at the bedside. Patient is sitting up in the chair. Patient states her pain is tolerable. Denies any further episodes of dizziness. She is tolerating clear liquid diet. Denies nausea. Esophagram completed this morning is negative for leak or obstruction. WBC 17.2. Hemoglobin 8.1, down from 9.7. PHYSICAL EXAM: VITAL SIGNS: Reviewed. GENERAL: Well-developed in no acute distress. HEENT: No sclera icterus. Extraocular movements grossly intact. Moist buccal mucosa. Head is atraumatic, normocephalic. ABDOMEN: Soft. Nondistended. Surgical tenderness. Surgical sites clean dry and intact without drainage or signs of infection. NEUROLOGIC: Alert and oriented. Cranial nerves II through XII grossly intact. ASSESSMENT: 1. Morbid obesity due to excess calories 2. Body mass index of 37.3, initial 3. Osteoarthritis of the knees. 4. Osteoarthritis of the lower back. 5. Hypertensive heart disease. 6. Gastroesophageal reflux disease 7. Iron deficiency anemia 8. Hypothyroidism 9. Anxiety disorder 10. Depressive disorder 11. Bronchitis 12. Leukocytosis PLAN: 1. Continue clear liquid diet as tolerated 2. Pain control. Continue Tylenol PRN 3. Activity as tolerated 4. Incentive spirometry 5. Replace potassium 6. Repeat hemoglobin at 1400 7. Anticipate discharge home this afternoon if hemoglobin remains stable Nurse practitioner note has been reviewed by physician. Signing provider agrees with the documented findings, assessment, and plan of care. Objective - Vital Signs Vital signs: Vital Signs Temp 99.2 F 08/14/18 07:00 Pulse 88 08/14/18 07:00 Resp 16 08/14/18 07:00 BP 147/70 08/14/18 07:00 Pulse Ox 100 08/14/18 07:00 Intake & Output 08/13/18 08/14/18 08/14/18 18:59 06:59 18:59 Intake Total 400 90 240 Output Total 600 Balance -200 90 240 Weight 98.7 kg Intake: Oral 400 90 240 Output: Urine 600 Other: Voiding Method Toilet Toilet Bedpan Bedpan # Voids 1 1 - Labs CBC & Chem 7: 08/14/18 07:58 08/14/18 07:58 Labs: Abnormal Lab Results - Last 24 Hours (Table) 08/14/18 08/14/18 Range/Units 07:58 07:58 WBC 17.2 H (3.8-10.6) k/uL RBC 3.30 L (3.80-5.40) m/uL Hgb 8.1 L D (11.4-16.0) gm/dL Hct 25.8 L (34.0-46.0) % MCV 78.2 L (80.0-100.0) fL MCH 24.5 L (25.0-35.0) pg RDW 18.7 H (11.5-15.5) % Neutrophils # 14.1 H (1.3-7.7) k/uL Potassium 3.4 L (3.5-5.1) mmol/L Glucose 128 H (74-99) mg/dL Assessment and Plan (1) Morbid obesity Current Visit: Yes Status: Acute Code(s): E66.01 - MORBID (SEVERE) OBESITY DUE TO EXCESS CALORIES SNOMED Code(s): 902459950 (2) S/P laparoscopic sleeve gastrectomy Current Visit: Yes Status: Acute Code(s): Z98.84 - BARIATRIC SURGERY STATUS SNOMED Code(s): 765570739 (3) Osteoarthritis Current Visit: Yes Status: Acute Code(s): M19.90 - UNSPECIFIED OSTEOARTHRITIS, UNSPECIFIED SITE SNOMED Code(s): 411530868 (4) GERD (gastroesophageal reflux disease) Current Visit: Yes Status: Acute Code(s): K21.9 - GASTRO-ESOPHAGEAL REFLUX DISEASE WITHOUT ESOPHAGITIS SNOMED Code(s): 109161853 (5) Hypertensive heart disease Current Visit: Yes Status: Acute Code(s): I11.9 - HYPERTENSIVE HEART DISEASE WITHOUT HEART FAILURE SNOMED Code(s): 13600851 (6) Iron deficiency anemia Current Visit: Yes Status: Acute Code(s): D50.9 - IRON DEFICIENCY ANEMIA, UNSPECIFIED SNOMED Code(s): 66867880
[2018-08-14] MEDS ORDERED: POTASSIUM CHLORIDE 10 MEQ in WATER FOR INJECTION 1 100ML.BAG IVPB SCH (12:00)
[2018-08-14] MEDS: POTASSIUM CHLORIDE ER 20 MEQ TAB.ER PO SCH ×2 (12:52→14:25)
[2018-08-14 14:47] LABS: Anisocytosis Slight; HCT 26.3 % (34.0-46.0); HGB 8.4 gm/dL (11.4-16.0); MCV 78.3 fL (80.0-100.0); Mean Platelet Volume 8.8; Microcytosis Slight; Platelet Count 236 k/uL (150-450); RBC 3.35 m/uL (3.80-5.40); RDW 18.6 % (11.5-15.5); WBC 16.6 k/uL (3.8-10.6)
[2018-08-14 15:22] VITALS: BP 144/79; PULSE 77; RESP 15; TEMP 98.5
--- NOTE | 2018-08-14 16:52 | P.DS ---
Providers Date of admission: 08/12/18 10:25 Expected date of discharge: 08/14/18 Attending physician: Alla Valencia [facility] Course: Repeat labs performed with hemoglobin improvement. Patient was cleared for discharge. Plan - Discharge Summary Discharge Rx Participant: Yes New Discharge Prescriptions: New Bisacodyl [Dulcolax] 5 mg PO DAILY PRN #10 tablet. PRN Reason: Constipation Simethicone 40 mg/0.6 ml Drops [Mylicon Drops] 40 mg PO PCHS PRN #30 ml PRN Reason: gas Ondansetron Odt [Zofran Odt] 4 mg PO Q8HR PRN #9 tab PRN Reason: Nausea Continue Omeprazole [PriLOSEC] 20 mg PO DAILY No Action Levothyroxine Sodium 150 mcg PO DAILY DULoxetine HCL [Cymbalta] 60 mg PO DAILY Chlorthalidone [Hygroton] 25 mg PO DAILY Discharge Medication List DULoxetine HCL [Cymbalta] 60 mg PO DAILY 08/04/18 [History] Levothyroxine Sodium 150 mcg PO DAILY 08/04/18 [History] Chlorthalidone [Hygroton] 25 mg PO DAILY 08/06/18 [History] Omeprazole [PriLOSEC] 20 mg PO DAILY 08/06/18 [History] Bisacodyl [Dulcolax] 5 mg PO DAILY PRN #10 tablet. 08/14/18 [Rx] Ondansetron Odt [Zofran Odt] 4 mg PO Q8HR PRN #9 tab 08/14/18 [Rx] Simethicone 40 mg/0.6 ml Drops [Mylicon Drops] 40 mg PO PCHS PRN #30 ml 08/14/18 [Rx] Follow up Appointment(s)/Referral(s): [facility],. [NON-STAFF] - 08/27/18 9:00 am Patient Instructions/Handouts: Nutrition after Bariatric Surgery (DC), Laparoscopic Sleeve Gastrectomy (DC) Activity/Diet/Wound Care/Special Instructions: Tylenol as needed for pain. You may shower. No soaking or tub baths. Very light activity until you are reevaluated at your follow up appointment with your surgeon NO lifting over 4 pounds in 4 weeks, September 13. May shower. No bathtub soaks. Drink 64 oz of fluid daily. Start protein shakes on Friday. Notify bariatric center for temp over 101.0, increased pain, drainage from incisions. No straws or carbonated beverages. Liquid diet only. Sugar content should be less than 6 g to avoid dumping syndrome. Take MOM for constipation. CRUSH, OPEN, OR CUT TABLETS LARGER THAN A SIZE OF A TIC TAC Discharge Disposition: HOME SELF-CARE
== END 2018-08-14 16:40 | disposition home or self-care (01) | DRG 621 ==
LOC: 2ORMAIN 10:25 → 4SSUR 16:32
PROVIDERS: ADMIT Surgery Plastic and Reconstructive Surgery; ATTEND Surgery Plastic and Reconstructive Surgery
PROC: 8E0W4CZ Robotic Assisted Procedure of Trunk Region, Percutaneous Endoscopic Approach (ICD-10-PCS; 2018-08-12)
PROC: 0DJ08ZZ Inspection of Upper Intestinal Tract, Via Natural or Artificial Opening Endoscopic (ICD-10-PCS; 2018-08-12)
PROC: 0DB64Z3 Excision of Stomach, Percutaneous Endoscopic Approach, Vertical (ICD-10-PCS; principal; 2018-08-12 11:40)
DX: E66.01 Morbid (severe) obesity due to excess calories (principal); Z68.37 Body mass index [BMI] 37.0-37.9, adult; I11.9 Hypertensive heart disease without heart failure; D50.9 Iron deficiency anemia, unspecified; D72.829 Elevated white blood cell count, unspecified; E03.9 Hypothyroidism, unspecified; F32.9 Major depressive disorder, single episode, unspecified; F41.9 Anxiety disorder, unspecified; J40 Bronchitis, not specified as acute or chronic; K21.9 Gastro-esophageal reflux disease without esophagitis; M16.0 Bilateral primary osteoarthritis of hip; M17.0 Bilateral primary osteoarthritis of knee; M47.9 Spondylosis, unspecified; K44.9 Diaphragmatic hernia without obstruction or gangrene; Z79.890 Hormone replacement therapy; Z79.899 Other long term (current) drug therapy; Z98.51 Tubal ligation status; Z88.1 Allergy status to other antibiotic agents; Z88.0 Allergy status to penicillin; Z88.2 Allergy status to sulfonamides; Z82.49 Family history of ischemic heart disease and other diseases of the circulatory system; Z84.89 Family history of other specified conditions
CPT/HCPCS: 36415; 74240; 80048; 80051; 80053; 81025; 82310; 82565; 83735; 84100; 84520; 85025; 85027; 86850; 86900; 86901; 88307

== ENCOUNTER → 2018-08-18 | Outpatient (CLI) | payer BC ==
[2018-08-18 10:18] VITALS: BP 143/74; PULSE 85; TEMP 99
[2018-08-18 10:53] VITALS: BMI 33.0
== END | disposition home or self-care (01) ==
LOC: BARWHC3 09:52
PROVIDERS: ATTEND Surgery Plastic and Reconstructive Surgery
DX: E66.01 Morbid (severe) obesity due to excess calories (principal); Z68.33 Body mass index [BMI] 33.0-33.9, adult
CPT/HCPCS: 97802; 99211

== ENCOUNTER → 2018-08-27 | Outpatient (CLI) | payer BC ==
[2018-08-27 09:28] VITALS: BP 131/83; PULSE 83; TEMP 97.8; BMI 32.4
--- NOTE | 2018-08-27 09:36 | P.PN ---
Subjective Progress Note Date: 08/27/18 DATE OF SERVICE: 08/27/2018 REASON FOR VISIT: Morbid obesity HISTORY OF PRESENT ILLNESS: Mary Rojas is a 47-year-old female status post sleeve gastrectomy, 08/12/2018. She is 2 weeks out. No nausea or vomiting. No GERD. She is tolerating liquids. At height of 5 feet 6.5 inches, her ideal body weight is 154 pounds. She comes in 207 pounds from 221 pounds, 1 month ago. She has lost 13 pounds in 1 month. Her body mass index is 35.2 down to 32.9. Lifetime weight loss of 14 pounds. Percent excess weight loss of 22%. PHYSICAL EXAM: VITAL SIGNS: Height 5 foot 6.5 inches, weight 207 pounds. BMI 32.9 Vital Signs Temp 97.8 F 08/27/18 09:25 Pulse 83 08/27/18 09:25 Resp BP 131/83 08/27/18 09:25 Pulse Ox GENERAL: Well-developed in no acute distress. HEENT: No scleral icterus. Extraocular movements grossly intact. Hears conversational speech. No nasal drainage. NECK: Supple without lymphadenopathy. CHEST: Nonlabored respirations with equal bilateral excursions. CARDIOVASCULAR: Regular rate and regular rhythm. Distal 2+ pulses. ABDOMEN: Incisions without infection. Soft. Nondistended. MUSCULOSKELETAL: No clubbing, cyanosis. Gross strength 5/5 distal lower extremities. NEURO: No focal or lateralizing signs. Cranial nerves 2 through 12 grossly within normal limits. PSYCH: Appropriate affect. Alert and oriented to person, place and time. SKIN: Good skin turgor. Well perfused. ASSESSMENT: 1. Morbid obesity due to excess calories 2. Body mass index of 37.3 to 32.9 3. Osteoarthritis of the knees. 4. Osteoarthritis of the lower back. 5. Hypertensive heart disease. 6. Gastroesophageal reflux disease 7. Iron deficiency anemia 8. Hypothyroidism 9. Anxiety disorder 10. Depressive disorder 11. Bronchitis 12. Status post sleeve gastrectomy PLAN: 1. Recommend labs 2. Return to work with restrictions 3. Multivitamin to start September 11 4. She will be off all restrictions September 11 Objective - Vital Signs Vital signs: Vital Signs Temp 97.8 F 08/27/18 09:25 Pulse 83 08/27/18 09:25 Resp BP 131/83 08/27/18 09:25 Pulse Ox Intake & Output 08/26/18 08/27/18 08/27/18 18:59 06:59 18:59 Weight 93.894 kg - Labs CBC & Chem 7: 08/27/18 10:00 08/27/18 10:00
--- NOTE | 2018-08-27 09:37 | P.PN ---
Progress Note - Text Progress Note Date: 08/27/18 To whom it may concern: Mary Rojas is under my surgical care. She may return to work, August 31 with restrictions of 4 pounds. She will be off restrictions September 11. Regards, Alla Valencia MD, FACS
[2018-08-27 10:46] LABS: Anisocytosis Slight; HCT 35.9 % (34.0-46.0); HGB 11.3 gm/dL (11.4-16.0); Hypochromasia Marked; MCH 25.8 pg (25.0-35.0); MCHC 31.5 g/dL (31.0-37.0); MCV 82.1 fL (80.0-100.0); Mean Platelet Volume 9.4; Platelet Count 450 k/uL (150-450); RBC 4.37 m/uL (3.80-5.40); RDW 18.9 % (11.5-15.5); WBC 9.3 k/uL (3.8-10.6)
[2018-08-27 10:50] LABS: INR 0.9 (<1.2); Partial Thromboplastin Time 24.5 sec (22.0-30.0); Prothrombin Time 10.2 sec (9.0-12.0)
[2018-08-27 17:07] LABS: Iron Saturation 12.74 (12.00-45.00); Vitamin D 25 Hydroxy 32.1 ng/mL (30.0-100.0)
[2018-08-27 17:37] LABS: Folate, Serum >24.0 ng/mL
[2018-08-27 17:58] LABS: Hemoglobin A1C 4.6 % (4.0-6.0)
[2018-08-27 19:18] LABS: African American GFR (CKD) 117.9 (60.0-200.0); Albumin 4.1 g/dL (3.80-4.90); Albumin/Globulin Ratio 1.58 (1.60-3.17); Anion Gap 12.6 mmol/L (4.00-12.00); BUN/Creat Ratio 25.71 Ratio (12.00-20.00); Calcium 9.8 mg/dL (8.7-10.3); Carbon Dioxide 29.4 mmol/L (21.6-31.8); Chol/HDL Ratio 4.77; Globulin 2.6 g/dL (1.6-3.3); LDL Cholesterol,Calculated 133.8 mg/dL (0.0-131.0); Magnesium 1.8 mg/dL (1.5-2.4); Phosphorus 3.5 mg/dL (2.4-5.1); Potassium 3.7 mmol/L (3.5-5.5); Total Bilirubin 1.2 mg/dL (0.3-1.2); Total Protein 6.7 g/dL (6.2-8.2); VLDL Calculation 28.2 mg/dL (5.00-40.00)
[2018-08-28 13:44] LABS: Vit B1(Thiamine) 81 ug/L (38-122)
[2018-08-28 15:20] LABS: Zinc, Serum 70 ug/dL (60-130)
[2018-08-29 15:14] LABS: Vitamin A 40 ug/dL (38-106)
[2018-09-01 16:49] LABS: Selenium 129 mcg/L (63-160)
== END | disposition home or self-care (01) ==
LOC: BARWHC3 08:59
PROVIDERS: ATTEND Surgery Plastic and Reconstructive Surgery
DX: E66.01 Morbid (severe) obesity due to excess calories (principal); M17.0 Bilateral primary osteoarthritis of knee; I11.9 Hypertensive heart disease without heart failure; K21.9 Gastro-esophageal reflux disease without esophagitis; D50.9 Iron deficiency anemia, unspecified; E03.9 Hypothyroidism, unspecified; F41.8 Other specified anxiety disorders; J40 Bronchitis, not specified as acute or chronic; Z98.84 Bariatric surgery status; Z68.32 Body mass index [BMI] 32.0-32.9, adult
CPT/HCPCS: 80053; 80061; 82306; 82525; 82607; 82728; 82746; 83036; 83540; 83550; 83735; 83970; 84100; 84134; 84255; 84425; 84443; 84590; 84630; 85027; 85610; 85730; 99211

== ENCOUNTER → 2018-08-27 | Outpatient (CLI) | payer BC | END | disposition home or self-care (01) | LOC: LABWHC1 09:47 | PROVIDERS: ATTEND Surgery Plastic and Reconstructive Surgery | DX: Z53.9 Procedure and treatment not carried out, unspecified reason (principal) ==

== ENCOUNTER → 2018-11-04 | Outpatient (CLI) | payer BC ==
[2018-11-04 17:05] VITALS: BP 130/78; PULSE 69; RESP 16; TEMP 98.1; BMI 28.8
--- NOTE | 2018-11-04 17:29 | P.PN ---
Subjective Progress Note Date: 11/04/18 HPI: No GERD. She has occasional epigastric pain with eating to fast. No diarrhea or constipation. She is off her blood medications. No joint pain or lower back pain. She was on a cruise and had done well. ABDOMEN: NO hernia PLAN: 1. Obtain labs 2. She is doing well. 3. She is taking her MVI Objective - Vital Signs Vital signs: Vital Signs Temp 98.1 F 11/04/18 17:02 Pulse 69 11/04/18 17:02 Resp 16 11/04/18 17:02 BP 130/78 11/04/18 17:02 Pulse Ox Intake & Output 11/03/18 11/04/18 11/04/18 18:59 06:59 18:59 Weight 83.574 kg
== END | disposition home or self-care (01) ==
LOC: BARWHC3 16:23
PROVIDERS: ATTEND Surgery Plastic and Reconstructive Surgery
DX: E66.01 Morbid (severe) obesity due to excess calories (principal); Z68.28 Body mass index [BMI] 28.0-28.9, adult
CPT/HCPCS: 97803; 99211

== ENCOUNTER → 2018-11-06 | Outpatient (CLI) | payer BC ==
[2018-11-06 08:02] LABS: HCT 42.5 % (34.0-46.0); HGB 14.1 gm/dL (11.4-16.0); MCH 27.4 pg (25.0-35.0); MCHC 33.1 g/dL (31.0-37.0); MCV 82.6 fL (80.0-100.0); Mean Platelet Volume 9.9; Platelet Count 187 k/uL (150-450); RBC 5.15 m/uL (3.80-5.40); RDW 15.7 % (11.5-15.5); WBC 6.5 k/uL (3.8-10.6)
[2018-11-06 08:11] LABS: Partial Thromboplastin Time 24.8 sec (22.0-30.0); Prothrombin Time 10.6 sec (9.0-12.0)
[2018-11-06 08:18] LABS: ALT 32 U/L (9-52); AST 25 U/L (14-36); African American GFR (CKD) >90 (>60 ml/min/1.73 sqM); Alkaline Phosphatase 67 U/L (38-126); Anion Gap 7 mmol/L; Blood Urea Nitrogen 14 mg/dL (7-17); Calcium 9.7 mg/dL (8.4-10.2); Carbon Dioxide 29 mmol/L (22-30); Chloride 104 mmol/L (98-107); Cholesterol 185 mg/dL (<200); Glucose 95 mg/dL (74-99); HDL Cholesterol 38 mg/dL (40-60); LDL Cholesterol,Calculated 125 mg/dL (0-99); Phosphorus 3.9 mg/dL (2.5-4.5); Potassium 4.6 mmol/L (3.5-5.1); Sodium 140 mmol/L (137-145); Total Bilirubin 0.9 mg/dL (0.2-1.3); Triglycerides 109 mg/dL (<150)
[2018-11-06 17:19] LABS: Ferritin 108.7 ng/mL (10.0-291.0); Iron Saturation 19.34 (12.00-45.00); Vitamin D 25 Hydroxy 45.7 ng/mL (30.0-100.0)
[2018-11-06 17:21] LABS: Folate, Serum 19.2 ng/mL
[2018-11-06 18:14] LABS: Hemoglobin A1C 5.3 % (4.0-6.0)
[2018-11-09 13:25] LABS: Zinc, Serum 64 ug/dL (60-130)
[2018-11-10 06:57] LABS: Vitamin A 38 ug/dL (38-106)
--- NOTE | 2018-11-10 08:46 | MM ---
Reason for exam: screening (asymptomatic). Last mammogram was performed 1 year and 1 month ago. History: Took hormonal contraceptives for 5 years beginning at age 18. Physical Findings: A clinical breast exam by your physician is recommended on an annual basis and results should be correlated with mammographic findings. MG 3D Screening Mammo W/Cad Bilateral CC and MLO view(s) were taken. Prior study comparison: October 14, 2017, bilateral MG 3d screening mammo w/cad. December 04, 2015, bilateral MG screening mammo w CAD. The breast tissue is heterogeneously dense. This may lower the sensitivity of mammography. Focal asymmetry 12 o'clock posterior right breast slightly larger from 2018 and new from older priors. ASSESSMENT: Incomplete: need additional imaging evaluation, BI-RAD 0 RECOMMENDATION: Special view mammogram of the right breast. (3D) If lesion persists on supplemental views, image directed ultrasound is recommended. [facility] will attempt to contact patient to return for supplemental views and ultrasound if indicated.
[2018-11-11 07:33] LABS: Vit B1(Thiamine) 83 ug/L (38-122)
== END | disposition home or self-care (01) ==
LOC: RADMAMWWP 07:19
PROVIDERS: ATTEND Family Medicine
DX: Z12.31 Encounter for screening mammogram for malignant neoplasm of breast (principal); E66.01 Morbid (severe) obesity due to excess calories; E21.1 Secondary hyperparathyroidism, not elsewhere classified; E89.1 Postprocedural hypoinsulinemia; D50.9 Iron deficiency anemia, unspecified; K90.9 Intestinal malabsorption, unspecified; E55.9 Vitamin D deficiency, unspecified; K76.9 Liver disease, unspecified; N19 Unspecified kidney failure; K50.90 Crohn's disease, unspecified, without complications
CPT/HCPCS: 77063; 77067; 80053; 80061; 82306; 82525; 82607; 82728; 82746; 83036; 83540; 83550; 83735; 83970; 84100; 84134; 84255; 84425; 84443; 84590; 84630; 85027; 85610; 85730

== ENCOUNTER → 2018-11-17 | Outpatient (CLI) | payer BC ==
--- NOTE | 2018-11-18 08:20 | MM ---
Reason for exam: additional evaluation requested from abnormal screening. Last mammogram was performed less than 1 month ago. History: Took hormonal contraceptives for 5 years beginning at age 18. Physical Findings: Nurse did not find any significant physical abnormalities on exam. MG 3D Work Up W/Cad RT CC and MLO view(s) were taken of the right breast. Prior study comparison: November 06, 2018, bilateral MG 3d screening mammo w/cad. October 14, 2017, bilateral MG 3d screening mammo w/cad. The breast tissue is heterogeneously dense. This may lower the sensitivity of mammography. Focal asymmetry decreased on compression. No significant new findings when compared with previous films. These results were verbally communicated with the patient and result sheet given to the patient on 11/17/18. ASSESSMENT: Probably benign, BI-RAD 3 RECOMMENDATION: Follow-up diagnostic mammogram of the right breast in 6 months.
== END | disposition home or self-care (01) ==
LOC: RADMAMWWP 14:55
PROVIDERS: ATTEND Family Medicine
DX: R92.8 Other abnormal and inconclusive findings on diagnostic imaging of breast (principal)
CPT/HCPCS: 77061; 77065

== ENCOUNTER → 2018-12-23 | Outpatient (CLI) | payer BC ==
[2018-12-23 11:05] LABS: Basophils % (A) 0 %; Eosinophils # (A) 0.1 k/uL (0-0.7); Eosinophils % (A) 1 %; HCT 45.4 % (34.0-46.0); HGB 14.3 gm/dL (11.4-16.0); Lymphocytes # (A) 1.9 k/uL (1.0-4.8); Lymphocytes % (A) 19 %; MCH 26.8 pg (25.0-35.0); MCHC 31.4 g/dL (31.0-37.0); MCV 85.5 fL (80.0-100.0); Mean Platelet Volume 8.9; Monocytes # (A) 0.3 k/uL (0-1.0); Monocytes % (A) 3 %; Neutrophils # (A) 7.7 k/uL (1.3-7.7); Neutrophils % (A) 76 %; Platelet Count 204 k/uL (150-450); RBC 5.31 m/uL (3.80-5.40); RDW 15.1 % (11.5-15.5); WBC 10.2 k/uL (3.8-10.6)
== END | disposition home or self-care (01) ==
LOC: LABPAT 10:10
PROVIDERS: ATTEND Obstetrics & Gynecology Obstetrics
DX: Z01.812 Encounter for preprocedural laboratory examination (principal); I10 Essential (primary) hypertension; D64.9 Anemia, unspecified; N92.0 Excessive and frequent menstruation with regular cycle
CPT/HCPCS: 85025

== ENCOUNTER 2019-01-05 06:56 | Day surgery (SDC) | payer BC ==
[2019-01-01 16:21] VITALS: BMI 27.6
[~2019-01-05 06:56] MED LIST changes: -CHLORHEXIDINE GLUCONATE 15 ML CUP MUCOUS MEM ONE; -ENOXAPARIN 40 MG/0.4 ML SYRINGE SQ ONE; -ENOXAPARIN 40 MG/0.4 ML SYRINGE SQ STA; +HYDROmorphone 0.5 MG/0.5 ML SYRINGE IVP PRN; +LACTATED RINGERS 1,000 ML IV SCH; -LIDOCAINE 1% 20 ML VIAL (10MG/ML) FOR IV START INTRADERMA PRN; +MIDAZOLAM 2 MG/2 ML VIAL IV PRN; +ONDANSETRON 4 MG/2 ML VIAL IVP ONE; -PANTOPRAZOLE 40 MG/10 ML VIAL IV STA; +Pre Op ABX Message 1 EACH MISC MISCELLANE ONE; -ceFAZolin IN SWFI 2 GM/20 ML SYRINGE IVP ONE
[2019-01-05] MEDS ORDERED: LACTATED RINGERS 1,000 ML IV ONE ×2 (07:25→10:00)
[2019-01-05] MEDS ORDERED: LIDOCAINE 1% 20 ML VIAL (10MG/ML) FOR IV START INTRADERMA ONE (07:26)
[2019-01-05] MEDS ORDERED: SILVER NITRATE APPLICATOR 1 EACH STICK..EA. TOPICAL ONE (08:32)
[2019-01-05] MEDS ORDERED: SUCCINYLCHOLINE CHLORIDE 100 MG/5 ML SYR IV ONE (08:35)
[2019-01-05] MEDS ORDERED: MIDAZOLAM 2 MG/2 ML VIAL ONE (08:35)
[2019-01-05] MEDS ORDERED: PROPOFOL 10 MG/ML 20 ML VIAL IV ONE (08:35)
[2019-01-05] MEDS ORDERED: KETOROLAC 30 MG/ML 1 ML VIAL ONE (08:35)
[2019-01-05] MEDS ORDERED: LIDOCAINE 1% INJ 10MG/ML (20 ML MDV) ONE (08:35)
[2019-01-05] MEDS ORDERED: fentaNYL (PF) 50 MCG/ML 2 ML AMP ONE (08:35)
--- NOTE | 2019-01-05 09:19 | P.OP ---
Date of Procedure: 01/05/19 Preoperative Diagnosis: Menorrhagia, anemia Postoperative Diagnosis: Same Procedure(s) Performed: Hysteroscopy, dilation and curettage, endometrial ablation with NovaSure Anesthesia: AMADOR Surgeon: Augustina Echavarria Estimated Blood Loss (ml): 10 Urine output (ml): 200 Pathology: other (Endometrial curettings) Condition: stable Disposition: PACU Indications for Procedure: Heavy menstrual bleeding with known anemia Operative Findings: Normal appearing proliferative endometrial cavity, cavity length of 8 minus cervix would give us total length of 4, width of 3.1 power for NovaSure device 68 for a total time of 2 minutes. Description of Procedure: Patient was seen in the preoperative area and informed consent was obtained. Patient stated understanding all questions were answered and she was taken back to the operating suite. She was prepped and draped in normal sterile fashion in the dorsal lithotomy position. A weighted speculum placed in the posterior vaginal vault the anterior lip of the cervix was visualized and grasped with a single-tooth tenaculum. Prior to this red rubber catheter was used to drain the bladder of clear yellow urine. The endocervical canal was then dilated to 17-Fr ench, a hysteroscope was placed through the cervix and toward the endometrial cavity, an intact cavity that is proliferative nature was noted. Multiple pictures were taken and hysteroscope was removed. A sharp curettage was then performed until gritty texture was noted and the specimen was sent to pathology for analysis. At this time the NovaSure device was opened and set to the appropriate cavity measurements for this patient. 470 m of length, 3.14 with a power of 68 with a total cycle time of 2 minutes. Cycle was allowed to complete after cavity assessment was completed/passed. Afterwards the device was removed without difficulty the single tooth tenaculum was taken off of the anterior lip the cervix and hemostasis was appreciated. Patient tolerated procedure well and all counts were correct 2.
[2019-01-05 09:36] VITALS: TEMP 97
[2019-01-05 10:19] VITALS: RESP 18
[2019-01-05] MEDS ORDERED: ACETAMINOPHEN TAB 500 MG TAB PO ONE (10:25)
[2019-01-05 10:27] VITALS: BP 140/85; PULSE 60
== END 2019-01-05 10:50 | disposition home or self-care (01) ==
LOC: OR 06:56
PROVIDERS: ATTEND Obstetrics & Gynecology Obstetrics
DX: N92.0 Excessive and frequent menstruation with regular cycle (principal); N84.0 Polyp of corpus uteri; D64.9 Anemia, unspecified; I10 Essential (primary) hypertension; K21.9 Gastro-esophageal reflux disease without esophagitis; K44.9 Diaphragmatic hernia without obstruction or gangrene; E07.9 Disorder of thyroid, unspecified; Z79.890 Hormone replacement therapy; Z79.899 Other long term (current) drug therapy; Z88.0 Allergy status to penicillin; Z88.2 Allergy status to sulfonamides; Z98.51 Tubal ligation status; Z83.3 Family history of diabetes mellitus; Z80.42 Family history of malignant neoplasm of prostate
CPT/HCPCS: 81025; 88305; 58563; J2250; J1100; J2405; J2001; J3010; J1885; J0330; J2704

== ENCOUNTER → 2019-01-13 | Outpatient (CLI) | payer BC ==
[2019-01-13 11:06] LABS: HCT 42.1 % (34.0-46.0); HGB 13.8 gm/dL (11.4-16.0); INR 0.9 (<1.2); MCH 28.8 pg (25.0-35.0); MCHC 32.8 g/dL (31.0-37.0); MCV 87.8 fL (80.0-100.0); Mean Platelet Volume 8.7; Platelet Count 192 k/uL (150-450); Prothrombin Time 9.9 sec (9.0-12.0); RDW 14.1 % (11.5-15.5); WBC 8.8 k/uL (3.8-10.6)
[2019-01-13 16:29] LABS: Ferritin 77.4 ng/mL (10.0-291.0)
[2019-01-13 16:32] LABS: % Iron Saturation 36.7 (12.00-45.00); African American GFR (CKD) 99.6 (60.0-200.0); Albumin 4.1 g/dL (3.80-4.90); Albumin/Globulin Ratio 2.05 (1.60-3.17); Anion Gap 6.5 mmol/L (4.00-12.00); BUN/Creat Ratio 27.5 Ratio (12.00-20.00); Calcium 9.4 mg/dL (8.7-10.3); Carbon Dioxide 28.5 mmol/L (21.6-31.8); Chol/HDL Ratio 3.73; Folate, Serum 22.5 ng/mL; LDL Cholesterol,Calculated 109.6 mg/dL (0.0-131.0); Magnesium 1.9 mg/dL (1.5-2.4); Phosphorus 4.2 mg/dL (2.4-5.1); Potassium 4.6 mmol/L (3.5-5.5); Total Bilirubin 0.9 mg/dL (0.3-1.2); Total Protein 6.1 g/dL (6.2-8.2); VLDL Calculation 21.4 mg/dL (5.00-40.00)
[2019-01-13 20:18] LABS: Hemoglobin A1C 4.8 % (4.0-6.0)
[2019-01-15 12:52] LABS: Vit B1(Thiamine) 77 ug/L (38-122)
[2019-01-15 13:12] LABS: Zinc, Serum 48 ug/dL (60-130)
[2019-01-16 09:26] LABS: Vitamin A 52 ug/dL (38-106)
== END | disposition home or self-care (01) ==
LOC: LABWHC1 10:08
PROVIDERS: ATTEND Surgery Plastic and Reconstructive Surgery
DX: N18.9 Chronic kidney disease, unspecified (principal); D63.1 Anemia in chronic kidney disease; K74.1 Hepatic sclerosis; K50.90 Crohn's disease, unspecified, without complications; E21.1 Secondary hyperparathyroidism, not elsewhere classified; E89.1 Postprocedural hypoinsulinemia; E44.0 Moderate protein-calorie malnutrition; E55.9 Vitamin D deficiency, unspecified; Z51.81 Encounter for therapeutic drug level monitoring
CPT/HCPCS: 36415; 80053; 80061; 82306; 82525; 82607; 82728; 82746; 83036; 83540; 83550; 83735; 83970; 84100; 84134; 84255; 84425; 84443; 84590; 84630; 85027; 85610; 85730

== ENCOUNTER → 2019-01-20 | Outpatient (CLI) | payer BC ==
[2019-01-20 16:02] VITALS: BP 149/71; PULSE 76; RESP 16; TEMP 97.8; BMI 27.1
--- NOTE | 2019-01-20 16:36 | P.PN ---
Subjective Progress Note Date: 01/20/19 She has reflux. GERD present without medications. Off blood pressure medications. Her goal is 170 pounds. No troubles with skin. MVI using bariatric advantage. She feels tired all the time despite rest. Labs reviewed. Objective - Vital Signs Vital signs: Vital Signs Temp 97.8 F 01/20/19 16:00 Pulse 76 01/20/19 16:00 Resp 16 01/20/19 16:00 BP 149/71 01/20/19 16:00 Pulse Ox Intake & Output 01/19/19 01/20/19 01/20/19 18:59 06:59 18:59 Weight 78.471 kg
== END ==
LOC: BARWHC3 15:53
PROVIDERS: ATTEND Surgery Plastic and Reconstructive Surgery
DX: K21.9 Gastro-esophageal reflux disease without esophagitis (principal)
CPT/HCPCS: 99211

== ENCOUNTER → 2019-08-11 | Outpatient (CLI) | payer BC ==
[2019-08-11 13:36] VITALS: BP 118/79; PULSE 69; RESP 16; TEMP 98.4; BMI 27.3
--- NOTE | 2019-08-11 14:00 | P.PN ---
Subjective Progress Note Date: 08/11/19 DATE OF SERVICE: 08/11/2019 CHIEF COMPLAINT: Status post sleeve gastrectomy HISTORY OF PRESENT ILLNESS: Mary Rojas is a 48-year-old female who is status post sleeve gastrectomy, 08/12/2018. She is 1 year out. She has 2 pounds weight gain in 6 months. She was snacking. She still takes omeprazole for gas troesophageal reflux disease. She is taking synthroid with medications. Her highest weight was over 234 pounds. At height of 5 feet 6 inches, her ideal body weight is 154 pounds, BMI 37.8. She comes in 175 pounds from 173 pounds, 6 months ago. Her BMI is 27.4. She has gained 2 pounds in 6 months. Lifetime weight loss is 59 pounds. Her lifetime percent excess weight loss is 74%. PHYSICAL EXAM: VITAL SIGNS: Height 5 foot 6 inches, weight 173 pounds. BMI 27.9 Vital Signs Temp 98.4 F 08/11/19 13:35 Pulse 69 08/11/19 13:35 Resp 16 08/11/19 13:35 BP 118/79 08/11/19 13:35 Pulse Ox GENERAL: Well-developed in no acute distress. HEENT: No scleral icterus. Extraocular movements grossly intact. Hears conversational speech. No nasal drainage. NECK: Supple without lymphadenopathy. CHEST: Nonlabored respirations with equal bilateral excursions. CARDIOVASCULAR: Regular rate and regular rhythm. Distal 2+ pulses. ABDOMEN: Obese, soft, nontender, nondistended. MUSCULOSKELETAL: No clubbing, cyanosis. NEURO: No focal or lateralizing signs. Cranial nerves 2 through 12 grossly within normal limits. PSYCH: Appropriate affect. Alert and oriented to person, place and time. SKIN: Good skin turgor. Well perfused. ASSESSMENT: 1. Morbid obesity due to excess calories 2. Body mass index of 37.8 to 27.4 3. Osteoarthritis of the knees. 4. Osteoarthritis of the lower back. 5. Hypertensive heart disease. 6. Gastroesophageal reflux disease 7. Iron deficiency anemia 8. Hypothyroidism 9. Anxiety disorder 10. Depressive disorder 11. Status post sleeve gastrectomy PLAN: 1. Recommend bariatric labs. 2. She still takes omeprazole and may wean off. 3. Recommend taking synthroid by itself. 4. Follow up in 1 month. Laboratory Last Values WBC 9.2 k/uL (3.8-10.6) 08/11/19 14:20 RBC 5.00 m/uL (3.80-5.40) 08/11/19 14:20 Hgb 14.9 gm/dL (11.4-16.0) 08/11/19 14:20 Hct 45.5 % (34.0-46.0) 08/11/19 14:20 MCV 91.2 fL (80.0-100.0) 08/11/19 14:20 MCH 29.8 pg (25.0-35.0) 08/11/19 14:20 MCHC 32.7 g/dL (31.0-37.0) 08/11/19 14:20 RDW 12.6 % (11.5-15.5) 08/11/19 14:20 Plt Count 213 k/uL (150-450) 08/11/19 14:20 PT 9.8 sec (9.0-12.0) 08/11/19 14:20 INR 0.9 (<1.2) 08/11/19 14:20 APTT 23.3 sec (22.0-30.0) 08/11/19 14:20 Sodium 140 mmol/L (135-145) 08/11/19 14:20 Potassium 4.4 mmol/L (3.5-5.5) 08/11/19 14:20 Chloride 104 mmol/L (96-109) 08/11/19 14:20 Carbon Dioxide 26.6 mmol/L (21.6-31.8) 08/11/19 14:20 Anion Gap 9.40 mmol/L (4.00-12.00) 08/11/19 14:20 BUN 25.0 mg/dL (9.0-27.0) 08/11/19 14:20 Creatinine 0.9 mg/dL (0.6-1.5) 08/11/19 14:20 Est GFR (CKD-EPI)AfAm 86.4 (60.0-200.0) 08/11/19 14:20 Est GFR (CKD-EPI)NonAf 74.6 (60.0-200.0) 08/11/19 14:20 BUN/Creatinine Ratio 27.78 Ratio (12.00-20.00) H 08/11/19 14:20 Glucose 90 mg/dL (70-110) 08/11/19 14:[address] Glu mg/dL 91 08/11/19 14:20 Hemoglobin A1c 4.8 % (4.0-6.0) 08/11/19 14:20 Calcium 9.2 mg/dL (8.7-10.3) 08/11/19 14:20 Phosphorus 3.8 mg/dL (2.4-5.1) 08/11/19 14:20 Magnesium 2.0 mg/dL (1.5-2.4) 08/11/19 14:20 Iron 49 ug/dL (50-170) L 08/11/19 14:20 TIBC 302 ug/dL (228-460) 08/11/19 14:20 % Saturation 16.23 (12.00-45.00) 08/11/19 14:20 Ferritin 52.8 ng/mL (10.0-291.0) 08/11/19 14:20 Total Bilirubin 0.9 mg/dL (0.3-1.2) 08/11/19 14:20 AST 21 U/L (13-35) 08/11/19 14:20 ALT 23 U/L (8-44) 08/11/19 14:20 Alkaline Phosphatase 92 U/L (41-126) 08/11/19 14:20 Total Protein 6.9 g/dL (6.2-8.2) 08/11/19 14:20 Albumin 4.30 g/dL (3.80-4.90) 08/11/19 14:20 Globulin 2.6 g/dL (1.6-3.3) 08/11/19 14:20 Albumin/Globulin Ratio 1.65 g/dL (1.60-3.17) 08/11/19 14:20 Prealbumin 21.0 mg/dL (18.0-42.0) 08/11/19 14:20 Triglycerides 72.0 mg/dL (0.0-149.0) 08/11/19 14:20 Cholesterol 205 mg/dL (0-200) H 08/11/19 14:20 LDL Cholesterol, Calc 130.6 mg/dL (0.0-131.0) 08/11/19 14:20 VLDL Cholesterol, Calc 14.40 mg/dL (5.00-40.00) 08/11/19 14:20 HDL Cholesterol 60.0 mg/dL (40.0-60.0) 08/11/19 14:20 Cholesterol/HDL Ratio 3.42 08/11/19 14:20 Vitamin A 49 ug/dL (38-106) 08/11/19 14:20 Vitamin B1 84 ug/L (38-122) 08/11/19 14:20 Vitamin B12 1648.0 pg/mL (200.0-944.0) H 08/11/19 14:20 Vitamin D 25-Hydroxy 58.9 ng/mL (30.0-100.0) 08/11/19 14:20 Folate >24.0 ng/mL 08/11/19 14:20 TSH 1.240 uIU/mL (0.350-5.500) 08/11/19 14:20 Free T4 1.30 ng/dL (0.80-1.80) 08/11/19 14:20 PTH Intact 35.8 pg/mL (14.0-72.0) 08/11/19 14:20 Copper 1161 ug/L (810-1990) 08/11/19 14:20 Selenium 101 mcg/L (63-160) 08/11/19 14:20 Zinc 58 ug/dL (60-130) L 08/11/19 14:20 Zinc is low. Objective - Vital Signs Vital signs: Vital Signs Temp 98.4 F 08/11/19 13:35 Pulse 69 08/11/19 13:35 Resp 16 08/11/19 13:35 BP 118/79 08/11/19 13:35 Pulse Ox Intake & Output 08/10/19 08/11/19 08/11/19 18:59 06:59 18:59 Weight 79.379 kg - Labs CBC & Chem 7: 08/11/19 14:20 08/11/19 14:20
[2019-08-11 14:54] LABS: HCT 45.5 % (34.0-46.0); HGB 14.9 gm/dL (11.4-16.0); MCH 29.8 pg (25.0-35.0); MCHC 32.7 g/dL (31.0-37.0); MCV 91.2 fL (80.0-100.0); Mean Platelet Volume 9.8; Platelet Count 213 k/uL (150-450); RDW 12.6 % (11.5-15.5); WBC 9.2 k/uL (3.8-10.6)
[2019-08-11 15:07] LABS: INR 0.9 (<1.2); Partial Thromboplastin Time 23.3 sec (22.0-30.0); Prothrombin Time 9.8 sec (9.0-12.0)
[2019-08-11 21:01] LABS: % Iron Saturation 16.23 (12.00-45.00); ALT 23 U/L (8-44); AST 21 U/L (13-35); African American GFR (CKD) 86.4 (60.0-200.0); Albumin/Globulin Ratio 1.65 (1.60-3.17); Alkaline Phosphatase 92 U/L (41-126); BUN/Creat Ratio 27.78 Ratio (12.00-20.00); Calcium 9.2 mg/dL (8.7-10.3); Carbon Dioxide 26.6 mmol/L (21.6-31.8); Chloride 104 mmol/L (96-109); Chol/HDL Ratio 3.42; Cholesterol 205 mg/dL (0-200); Globulin 2.6 g/dL (1.6-3.3); Glucose 90 mg/dL (70-110); Iron 49 ug/dL (50-170); LDL Cholesterol,Calculated 130.6 mg/dL (0.0-131.0); Non-African American GFR(CKD) 74.6 (60.0-200.0); Phosphorus 3.8 mg/dL (2.4-5.1); Potassium 4.4 mmol/L (3.5-5.5); Sodium 140 mmol/L (135-145); Total Bilirubin 0.9 mg/dL (0.3-1.2); Total Iron Binding Capacity 302 ug/dL (228-460); Total Protein 6.9 g/dL (6.2-8.2)
[2019-08-11 21:09] LABS: Ferritin 52.8 ng/mL (10.0-291.0)
[2019-08-11 21:42] LABS: Folate, Serum >24.0 ng/mL
[2019-08-11 21:55] LABS: Hemoglobin A1C 4.8 % (4.0-6.0)
[2019-08-13 12:50] LABS: Zinc, Serum 58 ug/dL (60-130)
[2019-08-15 02:11] LABS: Selenium 101 mcg/L (63-160)
[2019-08-16 08:33] LABS: Vit B1(Thiamine) 84 ug/L (38-122)
[2019-08-16 08:43] LABS: Vitamin A 49 ug/dL (38-106)
== END | disposition home or self-care (01) ==
LOC: BARWHC3 12:56
PROVIDERS: ATTEND Surgery Plastic and Reconstructive Surgery
DX: E66.01 Morbid (severe) obesity due to excess calories (principal); E03.9 Hypothyroidism, unspecified; F32.9 Major depressive disorder, single episode, unspecified; F41.9 Anxiety disorder, unspecified; D50.9 Iron deficiency anemia, unspecified; K21.9 Gastro-esophageal reflux disease without esophagitis; I11.9 Hypertensive heart disease without heart failure; Z68.37 Body mass index [BMI] 37.0-37.9, adult; M17.0 Bilateral primary osteoarthritis of knee; Z98.84 Bariatric surgery status
CPT/HCPCS: 80053; 80061; 82306; 82525; 82607; 82728; 82746; 83036; 83540; 83550; 83735; 83970; 84100; 84134; 84255; 84425; 84439; 84443; 84590; 84630; 85027; 85610; 85730; 99211

== ENCOUNTER 2020-03-29 08:08 | Day surgery (SDC) | payer BC ==
[2020-03-27 12:06] VITALS: BMI 28.1
[~2020-03-29 08:08] MED LIST changes: -DEXAMETHASONE SOD PHOSPHATE 10 MG/ML 1 ML VIAL IV ONE; -HYDROmorphone 0.5 MG/0.5 ML SYRINGE IVP PRN; +LIDOCAINE 1% (10MG/ML) FOR IV START INTRADERMA PRN; -MIDAZOLAM 2 MG/2 ML VIAL IV PRN; -ONDANSETRON 4 MG/2 ML VIAL IVP ONE; -Pre Op ABX Message 1 EACH MISC MISCELLANE ONE; -SCOPOLAMINE 1.5MG/72HR PATCH TRANSDERM ONE
--- NOTE | 2020-03-29 08:11 | P.GSHP ---
History of Present Illness H&P Date: 03/29/20 CHIEF COMPLAINT: Colon screen HISTORY OF PRESENT ILLNESS: The patient is a 49-year-old female who presents for colon screen. Lower endoscopy was offered for further evaluation and management. PAST MEDICAL HISTORY: Please see list. PAST SURGICAL HISTORY: Please see list. MEDICATIONS: Please see list. ALLERGIES: Please see list. SOCIAL HISTORY: No illicit drug use FAMILY HISTORY: No reports of Crohn disease or ulcerative colitis. REVIEW OF ORGAN SYSTEMS: CONSTITUTIONAL: No reports of fevers or chills. PHYSICAL EXAM: VITAL SIGNS: Stable GENERAL: Well-developed pleasant in no acute distress. HEENT: No scleral icterus. Extraocular movements grossly intact. Moist buccal mucosa. NECK: Supple without lymphadenopathy. CHEST: Unlabored respirations. Equal bilateral excursions. CARDIOVASCULAR: Regular rate and rhythm. Distal 2+ pulses. ABDOMEN: Soft, nontender, nondistended. MUSCULOSKELETAL: No clubbing, cyanosis, or edema. ASSESSMENT: 1. Colon screen. PLAN: 1. Recommend proceeding with a lower endoscopy Past Medical History Past Medical History: GERD/Reflux, Thyroid Disorder Additional Past Medical History / Comment(s): hx HIATAL HERNIA, Off Rx for HTN after bariatric sx. History of Any Multi-Drug Resistant Organisms: None Reported Past Surgical History: Bariatric Surgery, Tubal Ligation, Uterine Ablation Additional Past Surgical History / Comment(s): EGD, sleeve gastrectomy 08-12-18 (Dr. Valencia) Past Anesthesia/Blood Transfusion Reactions: Previous Problems w/ Anesthesia, Family History of Problems w/ Anesthesia Additional Past Anesthesia/Blood Transfusion Reaction / Comment(s): Lightheaded, passed out night of surgery 07/2018; father had similar episode x1. Smoking Status: Never smoker, Unknown if ever smoked - Past Family History Father Family Medical History: Cancer, Deep Vein Thrombosis (DVT) Additional Family Medical History / Comment(s): PROSTATE CANCER Medications and Allergies Home Medications Medication Instructions Recorded Confirmed Type Levothyroxine Sodium 125 mcg PO DAILY 08/04/18 03/27/20 History Omeprazole [PriLOSEC] 20 mg PO DAILY 08/06/18 03/27/20 History Iron 55 mg PO DAILY 11/27/18 03/27/20 History Multivitamins, Thera [Multivitamin 1 tab PO DAILY 11/27/18 03/27/20 History (formulary)] DULoxetine HCL [Cymbalta] 30 mg PO DAILY 03/27/20 03/27/20 History Allergies Allergy/AdvReac Type Severity Reaction Status Date / Time amoxicillin Allergy Rash/Hives Verified 03/27/20 12:01 sulfamethoxazole Allergy Rash/Hives Verified 03/27/20 12:01 [From Bactrim] trimethoprim [From Bactrim] Allergy Rash/Hives Verified 03/27/20 12:01
[2020-03-29 08:49] VITALS: TEMP 98.9
[2020-03-29] MEDS ORDERED: PROPOFOL 10 MG/ML 20 ML VIAL IV ONE (09:31)
--- NOTE | 2020-03-29 09:48 | P.PCN ---
Date of Procedure: 03/29/20 Description of Procedure: PREOPERATIVE DIAGNOSIS: Colonoscopy screening. POSTOPERATIVE DIAGNOSIS: Colonoscopy screening. OPERATION: Colonoscopy to the cecum, ileocecal valve and appendiceal orifice. SURGEON: Alla Valencia MD. ANESTHESIA: MAC. INDICATIONS: The patient is a 49-year-old female who presents for her first colonoscopy screening. Benefits and risks were described and informed consent was obtained. DESCRIPTION OF PROCEDURE: The patient had undergone Suprep. He had been brought into the operating room and laid in the left lateral decubitus position. After adequate intravenous sedation, the rectum was examined with 2% lidocaine jelly. No external hemorrhoids were encountered. The rectal tone was within normal limits. No lesions were palpated in the rectal vault. An Olympus colonoscope was advanced until the cecum, ileocecal valve and appendiceal orifice were clearly viewed. The prep was excellent. No scattered diverticulosis was encountered. No colonic polyps were found. No evidence of focal colitis was found. Retroflexion of the scope demonstrated grade 1 internal hemorrhoids without active bleeding or inflammation. The colon was desufflated. The patient had tolerated the procedure well. Withdrawal time was over 6 minutes. FINDINGS: Aronchick preparation quality scale 1 (1-5) Internal hemorrhoids, grade 1 No external prolapsed hemorrhoids. No arteriovenous malformations. No adenomatous polyps. No focal colitis. RECOMMENDATIONS: Lower endoscopy in 10 years, 2030 or Cologaurd Plan - Discharge Summary Discharge Rx Participant: No New Discharge Prescriptions: Continue Levothyroxine Sodium 125 mcg PO DAILY Omeprazole [PriLOSEC] 20 mg PO DAILY Multivitamins, Thera [Multivitamin (formulary)] 1 tab PO DAILY Iron 55 mg PO DAILY DULoxetine HCL [Cymbalta] 30 mg PO DAILY Discharge Medication List Levothyroxine Sodium 125 mcg PO DAILY 08/04/18 [History] Omeprazole [PriLOSEC] 20 mg PO DAILY 08/06/18 [History] Iron 55 mg PO DAILY 11/27/18 [History] Multivitamins, Thera [Multivitamin (formulary)] 1 tab PO DAILY 11/27/18 [History] DULoxetine HCL [Cymbalta] 30 mg PO DAILY 03/27/20 [History] Follow up Appointment(s)/Referral(s): Alla Valencia MD [STAFF PHYSICIAN] - As Needed Patient Instructions/Handouts: *Surgery [facility] - (Anesthesia) Endoscopy Discharge Instructions, Colonoscopy (DC) Activity/Diet/Wound Care/Special Instructions: Repeat colonoscopy in 10 years, 2030 or Cologaurd Discharge Disposition: HOME SELF-CARE
[2020-03-29 10:06] VITALS: BP 126/66; PULSE 72; RESP 16
== END 2020-03-29 10:48 | disposition home or self-care (01) ==
LOC: ORWHC2ENDO 08:08
PROVIDERS: ATTEND Surgery Plastic and Reconstructive Surgery
DX: Z12.11 Encounter for screening for malignant neoplasm of colon (principal); K64.0 First degree hemorrhoids; K21.9 Gastro-esophageal reflux disease without esophagitis; E07.9 Disorder of thyroid, unspecified; Z98.84 Bariatric surgery status; Z98.51 Tubal ligation status; F41.9 Anxiety disorder, unspecified; Z98.890 Other specified postprocedural states; Z82.49 Family history of ischemic heart disease and other diseases of the circulatory system; Z79.890 Hormone replacement therapy; Z79.899 Other long term (current) drug therapy; Z88.0 Allergy status to penicillin; Z88.2 Allergy status to sulfonamides
CPT/HCPCS: 81025; J2704; G0121

== ENCOUNTER → 2020-04-07 | Outpatient (CLI) | payer BC ==
--- NOTE | 2020-04-10 11:50 | MM ---
Reason for exam: screening (asymptomatic). Last mammogram was performed 1 year and 5 months ago. History: Took hormonal contraceptives for 5 years beginning at age 18. Physical Findings: A clinical breast exam by your physician is recommended on an annual basis and results should be correlated with mammographic findings. MG 3D Screening Mammo W/Cad Bilateral CC and MLO view(s) were taken. Prior study comparison: November 06, 2018, bilateral MG 3d screening mammo w/cad. October 14, 2017, bilateral MG 3d screening mammo w/cad. December 04, 2015, bilateral MG screening mammo w CAD. There are scattered fibroglandular densities. Scattered asymmetric density are unchanged. No significant changes when compared with prior studies. ASSESSMENT: Negative, BI-RAD 1 RECOMMENDATION: Routine screening mammogram of both breasts in 1 year.
== END | disposition home or self-care (01) ==
LOC: RADMAMWWP 07:28
PROVIDERS: ATTEND Family Medicine
DX: Z12.31 Encounter for screening mammogram for malignant neoplasm of breast (principal)
CPT/HCPCS: 77063; 77067

== ENCOUNTER → 2020-04-19 | Outpatient (CLI) | payer BC ==
--- NOTE | 2020-04-19 09:36 | US ---
EXAMINATION TYPE: US abdomen comp/pelvis limited DATE OF EXAM: 04/19/2020 COMPARISON: NONE CLINICAL HISTORY: 49-year-old female R10.30 Lower Abdominal Pain. Intermittent abdomen pain x 3 weeks TECHNIQUE: Multiple sonographic images of the abdomen and bladder are obtained. FINDINGS: EXAM MEASUREMENTS: Liver Length: 15.0 cm Gallbladder Wall: 0.2 cm CBD: 0.5 cm Spleen: 10.1 cm Right Kidney: 9.5 x 4.6 x 4.7 cm Left Kidney: 9.1 x 4.3 x 4.0 cm Pancreas: Only a small portion of the pancreatic neck is visualized. The remainder is obscured by vicki wel gas shadowing. Liver: No gross abnormal. No focal lesion seen. Gallbladder: wnl CBD: wnl Spleen: wnl Right Kidney: wnl Left Kidney: wnl Upper IVC: wnl Abd Aorta: wnl Bladder: wnl Bilateral Jets Seen yes IMPRESSION: Suboptimal visualization of the pancreas. Otherwise, unremarkable sonographic examination of the abdo men and bladder.
== END ==
LOC: RADUSWWP 06:59
PROVIDERS: ATTEND Surgery Plastic and Reconstructive Surgery
DX: R10.30 Lower abdominal pain, unspecified (principal)
CPT/HCPCS: 76700; 76857

== ENCOUNTER 2021-01-04 13:28 | Day surgery (SDC) | payer BC ==
[2021-01-02 14:24] VITALS: BMI 29.7
[~2021-01-04 13:28] MED LIST changes: +CIPROFLOXACIN/DEXTROSE PMX 400 MG in DEXTROSE/WATER 1 200ML.BAG IVPB PRN; +DEXAMETHASONE SOD PHOSPHATE 4 MG/ML 1 ML VIAL IV ONE; +HYDROmorphone 0.5 MG/0.5 ML SYRINGE IVP PRN; +ONDANSETRON 4 MG/2 ML VIAL IVP ONE
--- NOTE | 2021-01-04 13:51 | XR ---
EXAMINATION TYPE: XR KUB DATE OF EXAM: 01/04/2021 COMPARISON: NONE HISTORY: Preop kidney stones TECHNIQUE: One view abdominal series FINDINGS: The osseous structures are intact. The bowel gas pattern is nonspecific. Hypertrophic change of the spine and arthropathy of the hips. Bowel content limits assessment for kidney stones. No obvious calc ifications are seen. IMPRESSION: 1. Nonspecific abdomen.
--- NOTE | 2021-01-04 15:19 | P.HPIHPCON ---
History of Present Illness H&P Date: 01/04/21 This is a 50-year-old female with history of 2 mm left-sided distal stone. She has failed medical expulsive therapy, and she is quite symptomatically from her stone. Discussed with her the option of doing a left-sided ureteroscopy. Discussed with her the risk which includes but not limited to bleeding, infection, injury to the ureter. She understood all the risk and agreed to proceed with left-sided ureteroscopy, with holmium laser lithotripsy, stone basketing and stent insertion Consent for Procedure: I have explained the operation/procedure to the patient, including the risks, benefits, side effects, alternative therapies (including not receiving the proposed treatment or service), the likelihood of the patient achieving his/her goals, and potential recuperation problems for the procedure/sedation/analgesia, as well as any blood products, if indicated. I also explained to the patient the risks, benefits and side effects of the alternatives, as well as the risks related to not receiving the proposed procedure, care, treatment, or services. Past Medical History Past Medical History: GERD/Reflux, Hypertension, Thyroid Disorder Additional Past Medical History / Comment(s): Hx Hiatal Hernia, no medication needed for hypertension after bariatric surgery. Current left kidney stones. History of Any Multi-Drug Resistant Organisms: None Reported Past Surgical History: Bariatric Surgery, Tubal Ligation, Uterine Ablation Additional Past Surgical History / Comment(s): EGD, Sleeve Gastrectomy 08-12-18. Past Anesthesia/Blood Transfusion Reactions: Previous Problems w/ Anesthesia, Family History of Problems w/ Anesthesia Additional Past Anesthesia/Blood Transfusion Reaction / Comment(s): Lightheaded, passed out night of surgery 07/2018; father had similar episode X1. Past Psychological History: Anxiety Smoking Status: Never smoker Past Alcohol Use History: Occasional Past Drug Use History: None Reported - Past Family History Father Family Medical History: Cancer, Deep Vein Thrombosis (DVT) Additional Family Medical History / Comment(s): PROSTATE CANCER. Medications and Allergies Home Medications Medication Instructions Recorded Confirmed Type Levothyroxine Sodium 125 mcg PO QAM 08/04/18 01/02/21 History Omeprazole [PriLOSEC] 20 mg PO QAM 08/06/18 01/02/21 History DULoxetine HCL [Cymbalta] 20 mg PO QAM 11/16/21 11/18/21 History Allergies Allergy/AdvReac Type Severity Reaction Status Date / Time amoxicillin Allergy Rash/Hives Verified 01/04/21 13:59 sulfamethoxazole Allergy Rash/Hives Verified 01/04/21 13:59 [From Bactrim] trimethoprim [From Bactrim] Allergy Rash/Hives Verified 01/04/21 13:59 Surgical - Exam Vital Signs Temp Pulse Resp BP Pulse Ox 98 F 77 18 118/72 100 01/04/21 14:00 01/04/21 14:00 01/04/21 14:00 01/04/21 14:00 01/04/21 14:00 - General no distress, moderate pain - Eyes PERRL, normal ocular movement - ENT normal nares, normal mucosa - Respiratory normal expansion, normal respiratory effort - Abdomen Abdomen: soft, non tender Assessment and Plan Assessment: OR for left-sided ureteroscopy, with holmium laser lithotripsy, stone basketing and stent insertion
[2021-01-04] MEDS ORDERED: MIDAZOLAM 2 MG/2 ML VIAL IVP ONE (16:36)
[2021-01-04] MEDS ORDERED: fentaNYL (PF) 50 MCG/ML 2 ML AMP ONE (16:45)
[2021-01-04] MEDS ORDERED: PROPOFOL 10 MG/ML 20 ML VIAL IV ONE (16:45)
[2021-01-04] MEDS ORDERED: LIDOCAINE 1% INJ 10MG/ML (20 ML MDV) ONE (16:45)
[2021-01-04] MEDS ORDERED: SUCCINYLCHOLINE CHLORIDE 100 MG/5 ML SYR IV ONE (16:45)
[2021-01-04] MEDS ORDERED: NEOSTIGMINE 1 MG/ML 10 ML VIAL ONE (16:45)
[2021-01-04] MEDS ORDERED: GLYCOPYRROLATE 0.2 MG/ML 2 ML VIAL ONE (16:45)
[2021-01-04] MEDS ORDERED: ROCURONIUM 10 MG/ML (5 ML VIAL) IV ONE (16:45)
[2021-01-04] MEDS ORDERED: IOPAMIDOL-370 50ML BTL IRRIGATION ONE (17:15)
--- NOTE | 2021-01-04 17:25 | P.OP ---
Date of Procedure: 01/04/21 Preoperative Diagnosis: Left ureteral stone Postoperative Diagnosis: Same Procedure(s) Performed: Cystoscopy, left ureteroscopy, retrograde pyelogram and stent insertion Implants: 6-Malaysian by 26 cm stent in the left ureter or left on a string Anesthesia: AMADOR Surgeon: Shubham Crabtree Estimated Blood Loss (ml): 1 Pathology: none sent Condition: stable Disposition: PACU Indications for Procedure: This is a 50-year-old female with history of 2 mm left-sided distal stone. She has failed medical expulsive therapy, and she is quite symptomatically from her stone. Discussed with her the option of doing a left-sided ureteroscopy. Discussed with her the risk which includes but not limited to bleeding, infection, injury to the ureter. She understood all the risk and agreed to proceed with left-sided ureteroscopy, with holmium laser lithotripsy, stone basketing and stent insertion Operative Findings: No stone visualized along the course of the ureter, ureteral edema at the UVJ Description of Procedure: Patient was brought to the operating room, general anesthesia was induced. She was prepped and draped in sterile fashion and placed in dorsal lithotomy position. Cystoscopy fitted with a 21-Malaysian sheath was inserted per urethra, cystoscopy was performed which showed no abnormality within the bladder. At this time a semirigid ureteroscope was inserted, and was advanced up the left ureteral orifice, of note there was ureteral edema at the UVJ, but I was able to navigate the scope past that, there was no stone visualized within the edema. At this time the ureteroscope was advanced all the way up to the UPJ which showed no stones, of note the ureter was not dilated. Retrograde Polygram was performed which showed no filling defect in the kidney or hydronephrosis. Pullback ureteroscopy was performed which showed no injury to the ureter or any ureteral stone. Given the ureteral edema at the UVJ decision was made to place a stent. As the ureteroscope was withdrawn a sensor wire was advanced through. At ureteral stent was passed over the wire, the proximal curl was visualized on fluoroscopy and the distal curl was visualized using the cystoscope. The bladder was emptied at the end of the case. Patient tolerated the procedure well was taken to recovery in stable condition
[2021-01-04 17:33] VITALS: TEMP 97.5
[2021-01-04 18:36] VITALS: BP 123/71; PULSE 63; RESP 20
--- NOTE | 2021-01-05 09:39 | FL ---
Fluoroscopy HISTORY: Pain 9 seconds fluoroscopy time supplied to the referring clinician. 2 intraoperative C-arm images docume nt the procedure. See dictated report from urology.
== END 2021-01-04 19:00 | disposition home or self-care (01) ==
LOC: OR 13:28
PROVIDERS: ATTEND Urology
DX: N20.1 Calculus of ureter (principal); K21.9 Gastro-esophageal reflux disease without esophagitis; I10 Essential (primary) hypertension; F32.9 Major depressive disorder, single episode, unspecified; Z87.442 Personal history of urinary calculi; Z88.0 Allergy status to penicillin; Z88.2 Allergy status to sulfonamides; Z79.899 Other long term (current) drug therapy
CPT/HCPCS: 81025; 74420; 74018; 52332; C1769; J2250; J1100; J2710; J2405; J2001; J3010; J0744; J0330; J2704; Q9967

== ENCOUNTER → 2021-01-23 | Outpatient (CLI) | payer BC ==
--- NOTE | 2021-01-23 15:54 | CT ---
EXAMINATION TYPE: CT abdomen pelvis wo con DATE OF EXAM: 01/23/2021 HISTORY: Calculus of kidney CT DLP: 591.6 mGycm. Automated Exposure Control for Dose Reduction was Utilized. TECHNIQUE: CT scan of the abdomen and pelvis is performed without oral or IV contrast. COMPARISON: Ultrasound abdomen and limited pelvis April 19, 2020 FINDINGS: Within the limitations of a non-contrast study, the following observations are made. LUNG BASES: No significant abnormality is appreciated. LIVER/GB: No significant abnormality is appreciated. PANCREAS: No significant abnormality is seen. SPLEEN: No significant abnormality is seen. ADRENALS: No significant abnormality is seen. KIDNEYS: No renal calculus or hydronephrosis seen bilaterally. BOWEL: Incidental normal-appearing appendix from cecum in the right pelvis. No suspicious small or la rge bowel dilatation. Surgical changes from gastric sleeve noted at epigastric region. GENITAL ORGANS: Anteverted uterus. Single 2 to 3 mm right pelvic calcification appears to be in the l ower uterine segment or cervix axial image 71. Additional 2 to 3 mm calcification axial image 71 appe ars to be anterior aspect of the uterus on coronal and sagittal images. No definitive intraluminal ca lculus in bladder. Additional inferior calcified tiny pelvic phlebolith on the left axial image 75. LYMPH NODES: No greater than 1cm abdominal or pelvic lymph nodes are appreciated. OSSEOUS STRUCTURES: Facet arthropathy lower lumbar spine. [id number] axial joint space loss bot h hips fairly symmetric in appearance. OTHER: No significant additional abnormality is seen. IMPRESSION: No renal stones or hydronephrosis is seen bilaterally.
== END | disposition home or self-care (01) ==
LOC: RADCTMAIN 07:56
PROVIDERS: ATTEND Urology
DX: N20.0 Calculus of kidney (principal)
CPT/HCPCS: 74176

== ENCOUNTER → 2021-06-22 | Outpatient (CLI) | payer BC ==
--- NOTE | 2021-06-23 02:26 | MR ---
EXAMINATION TYPE: MR lumbar spine wo con DATE OF EXAM: 06/22/2021 COMPARISON: None HISTORY: Low back pain that radiates into left buttocks for 8 months. Multiplanar multiecho imaging of the lumbar spine without contrast. Lumbar vertebrae have normal alignment. There is a minimal posterior disc bulge at L5-S1. There is de velopmentally adequate spinal canal. No spinal stenosis. Lumbar nerve roots appear normal. The neural foramina appear fairly normal. No lumbar compression fracture. No significant disc space narrowing. There is no lumbar paraspinal mass. I see no focal bone destruction. IMPRESSION: Minimal posterior disc bulging seen at L5-S1. No spinal stenosis. No fracture.
== END | disposition home or self-care (01) ==
LOC: RADMRIMAIN 21:25
PROVIDERS: ATTEND Family Medicine
DX: M51.37 Other intervertebral disc degeneration, lumbosacral region (principal)
CPT/HCPCS: 72148

== ENCOUNTER → 2022-09-21 | Outpatient (CLI) | payer BC ==
[2022-09-22 06:49] LABS: Basophils # (A) 0.06 X 10*3/uL (0.00-0.10); Basophils % (A) 0.8 %; Eosinophils # (A) 0.09 X 10*3/uL (0.04-0.35); Eosinophils % (A) 1.3 %; HCT 48.6 % (37.2-46.3); Lymphocytes # (A) 2.31 X 10*3/uL (0.90-5.00); Lymphocytes % (A) 32.4 %; MCHC 30.9 d/dL (32.0-37.0); MCV 90.7 FL (80.0-97.0); Mean Platelet Volume 12.7 FL (9.5-12.2); Monocytes # (A) 0.31 X 10*3/uL (0.20-1.00); Monocytes % (A) 4.4 %; NRBC Per 100 WBC 0 X 10*3/uL (0.00-0.01); Neutrophils # (A) 4.34 X 10*3/uL (1.80-7.70); Platelet Count 201 X 10*3/uL (140-440); RBC 5.36 X 10*6/uL (4.10-5.20); WBC 7.12 X 10*3/uL (4.50-10.00)
[2022-09-22 08:09] LABS: ALT 15 U/L (8-44); AST 20 U/L (13-35); Albumin 3.5 d/dL (3.8-4.9); Albumin/Globulin Ratio 2.33 Ratio (1.60-3.17); Alkaline Phosphatase 73 U/L (41-126); BUN/Creat Ratio 15.33 Ratio (12.00-20.00); Blood Urea Nitrogen 13.8 mg/dL (9.0-27.0); Calcium 9.2 mg/dL (8.7-10.3); Carbon Dioxide 28.7 mmol/L (21.6-31.8); Chloride 107 mmol/L (96-109); Chol/HDL Ratio 4.23 Ratio; Globulin 1.5 d/dL (1.6-3.3); Glucose 88 mg/dL (70-110); LDL Cholesterol,Calculated 123.4 mg/dL (0.0-131.0); Sodium 144 mmol/L (135-145); T4, Free (Free Thyroxine) 1.19 ng/dL (0.80-1.80); Total Bilirubin 0.6 mg/dL (0.3-1.2)
== END | disposition home or self-care (01) ==
LOC: LABWHC1 09:52
PROVIDERS: ATTEND Family Medicine
DX: I26.99 Other pulmonary embolism without acute cor pulmonale (principal)
CPT/HCPCS: 36415; 80053; 80061; 84439; 84443; 85025; 86803

== ENCOUNTER → 2023-11-26 | Outpatient (CLI) | payer BC ==
--- NOTE | 2023-11-26 09:10 | MM ---
Reason for Exam: Screening (asymptomatic). Last mammogram was performed 3 year(s) and 8 month(s) ago. Patient History: Menarche at age 12. First Full-Term at age 23. Postmenopausal. Hormonal Contraceptives for 5 years from age 18 until age 23. Risk Values: Klarissa 5 year model risk: 1.2%. NCI Lifetime model risk: 8.5%. Prior Study Comparison: 12/04/2015 Bilateral Screening Mammogram, [facility]. 10/14/2017 Bilateral Screening Mammogram, [facility]. 11/06/2018 Bilateral Screening Mammogram, [facility]. 11/17/2018 Right Diagnostic Mammogram, [facility]. 04/07/2020 Bilateral Screening Mammogram, [facility]. Tissue Density: The breasts are heterogeneously dense, which may obscure small masses. Findings: Analyzed By CAD. There is no suspicious group of microcalcifications or new suspicious mass in either breast. Overall Assessment: Benign, BI-RAD 2 Management: Screening Mammogram of both breasts in 1 year. . Patient should continue monthly self-breast exams. A clinical breast exam by your physician is recommended on an annual basis. This exam should not preclude additional follow-up of suspicious palpable abnormalities. Note on Klarissa scores and lifetime risk: 1. A Klarissa score greater than 3% is considered moderate risk. If this is the case, consider specialist referral to assess eligibility for a risk reducing agent. 2. If overall lifetime risk for the development of breast cancer is 20% or higher, the patient may qualify for future screening with alternating mammogram and breast MRI. [facility], , 11/26/2023 9:07 AM. Electronically signed and approved by: Alex Akhtar M.D. [facility]iolog[facility]
== END | disposition home or self-care (01) ==
LOC: RADMAMWWP 06:54
PROVIDERS: ATTEND Family Medicine
CPT/HCPCS: 77063; 77067